=== PATIENT | male | born 1995 | race Caucasian/White ===

== ENCOUNTER → 2018-10-13 16:13 | Outpatient (CLI) | payer OTHER, SELFPAY ==
[2018-10-13 17:31] LABS: Absolute Lymphocyte Count 2.39 X10^3/ul (0.83-4.51); Absolute Neutrophil Count 2.5 X10^3/uL (2.0-7.7); Basophil# 0.04 X10^3/uL; Basophil% 0.7 % (0-1); Eosinophil# 0.25 X10^3/uL; Eosinophils% 4.4 % (0-5); Hematocrit 45.3 % (40-54); Hemoglobin 15.4 g/dl (13.0-16.5); Lymphocyte # 2.39 X10^3/ul (4.0); Lymphocyte % 42.2 % (19-41); Mean Corpuscular Hgb 28.9 pg (27.0-32.0); Mean Platelet Vol. 9.5 fl (6.2-12.0); Monocyte# 0.43 X10^3/uL; Monocyte% 7.6 % (0-10); Neutrophil # 2.54 X10^3/uL (2.7-7.7); Neutrophil % 44.9 % (47-70); Platelet Count 293 K/mm3 (150-450); RBC Distribution Width SD 37.1 fl (35.1-43.9); Red Blood Count 5.33 M/mm3 (4.6-6.2); White Blood Count 5.7 K/mm3 (4.4-11.0)
[2018-10-13 17:39] LABS: Vitamin D,25 Hydroxy 17.9 ng/mL (29.95-100.01)
[2018-10-13 17:47] LABS: POSITIVE COUNT NO; POSITIVE DIFFERENTIAL NO; POSITIVE MORPHOLOGY NO
[2018-10-13 17:50] LABS: ALB/GLOB Ratio 1.2 RATIO (0.9-2.4); AST(SGOT) 16 U/L (15-37); Alanine Aminotransfer ALT/SGPT 39 U/L (16-61); Albumin, Serum 3.9 g/dL (3.2-5.0); Alkaline Phosphatase 67 U/L (45-117); Anion Gap 9 (5-15); BUN 20 mg/dL (7-18); BUN/Creat Ratio 24.9 RATIO (10-20); Calcium,Total 9.2 mg/dL (8.5-10.1); Chloride 104 mmol/L (98-107); EST Glomerular Filtration Rate 125 mL/min (>60); Est Glom Filt Rate - Afr Amer 151 mL/min (>60); Globulin 3.2 g/dL (2.2-4.2); Glucose 85 mg/dL (74-106); Potassium 4.1 mmol/L (3.5-5.1); Protein, Total 7.1 g/dL (6.4-8.2); Sodium Level 138 mmol/L (136-145); Thyroid Stim Hormone (TSH) 0.84 uIU/mL (0.358-3.74)
--- OUTSIDE RECORDS SUMMARY | 2018-12-18 16:11 | XMS RPT_ITS ---
:1995 Author Organization OHIP Care Team Providers Name Role Phone Colin Adams Chi Attending Unavailable PROBLEMS PROBLEMS No Problem Records FoundPROCEDURES PROCEDURES No Procedure Records FoundRESULTS RESULTS VITAMIN D,25 HYDROXY Collected: 10/13/2018 Status: F Source: [place] 4:16 PM [facility] REPOSITORY TYPE CODE TESTS RESULT OUT OF REFERENCE UNITS RANGE LAB L506.1000 29.95-100.01 ng/mL Low Vitamin D 17.9 25-OH Result Comment: Vitamin D 25(OH) Status Range Deficiency <20 ng/mL (50nmol/L) Insuffciency 20 - 30 ng/mL (50 - 75 nmol/L) Sufficiency 30 - 100 ng/mL (75 - 250 nmol/L) Toxicity >100 ng/mL (>250 nmol/L) Performed By: #### L506.1000 #### [facility] [place], [address] CBC W/DIFF, AUTOMATED Collected: 10/13/2018 Status: F Source: [place] 4:16 PM [facility] REPOSITORY TYPE CODE TESTS RESULT OUT OF RANGE REFERENCE UNITS LAB L100.1000 4.4-11.0 K/mm3 Normal WBC 5.7 LAB L100.1200 4.6-6.2 M/mm3 Normal RBC 5.33 LAB L100.1300 13.0-16.5 g/dl Normal HGB 15.4 LAB L100.1400 40-54 % Normal HCT 45.3 LAB L100.1500 80-94 fL Normal MCV 85.0 LAB L100.1600 27.0-32.0 pg Normal MCH 28.9 LAB L100.1700 32-36 g/gl Normal MCHC 34.0 LAB L100.1810 11.6-14.6 % Normal RDW CV 12.0 LAB L100.1820 35.1-43.9 fl Normal RDW SD 37.1 LAB L100.1900 150-450 K/mm3 Normal PLT 293 LAB L100.2000 6.2-12.0 fl Normal MPV 9.5 LAB L100.2100 47-70 % Low NEUT% 44.9 LAB L100.2200 19-41 % High LY% 42.2 LAB L100.2300 0-10 % Normal MONO% 7.6 LAB L100.2400 0-5 % Normal EO% 4.4 LAB L100.2500 0-1 % Normal BASO% 0.7 LAB L100.2550 0.0-0.9 % Normal IM GRAN % 0.200 Result Comment: IG% - Immature Granulocytes (promyelocytes, myelocytes and metamyelocytes) > 1% indicates that a LEFT SHIFT is Present. LAB L100.2620 2.0-7.7 X10 3/uL Normal Absolute Neut 2.5 LAB L100.2720 0.83-4.51 X10 3/ul Normal Absolute Lymph 2.39 Performed By: #### L100.0100 #### [facility] [address] [place], [address] COMPREHENSIVE METABOLIC Collected: 10/13/2018 Status: F Source: [facility] 4:16 PM [facility] REPOSITORY TYPE CODE TESTS RESULT OUT OF RANGE REFERENCE UNITS LAB L501.0100 74-106 mg/dL Normal GLU 85 Result Comment: Please note revised GLUCOSE reference range effective 2017. LAB L501.1000 7-18 mg/dL High BUN 20 LAB L501.1100 0.70-1.30 mg/dL Normal CREAT,SERUM 0.80 Result Comment: The validity of the calculated GFR AND GFRAA in patients over 70 years has not been determined. Clinical correlation is essential. LAB L501.1110 >60 mL/min Normal EST GFR 125 Result Comment: Non- GFR Calc LAB L501.1115 >60 mL/min Normal EST GFR - AA 151 Result Comment: GFR Calc LAB L501.1300 10-20 RATIO High BUN/CRE 24.9 LAB L501.1500 6.4-8.2 g/dL T Normal PROT 7.1 LAB L501.1800 3.2-5.0 g/dL Normal ALB 3.9 LAB L501.1950 2.2-4.2 g/dL Normal GLOB 3.2 LAB L501.2000 0.9-2.4 RATIO Normal A/G 1.2 LAB L501.2200 8.5-10.1 mg/dL CA Normal 9.2 LAB L501.4100 15-37 U/L Normal AST 16 LAB L501.4305 45-117 U/L Normal ALK P 67 LAB L501.4405 16-61 U/L Normal ALT 39 LAB L501.4600 0.20-1.00 mg/dL T Normal BILI 0.30 LAB L501.5300 136-145 mmol/L NA Normal 138 LAB L501.5600 3.5-5.1 mmol/L K Normal 4.1 LAB L501.5900 98-107 mmol/L CL Normal 104 LAB L501.6100 21.0-32.0 mmol/L Normal CO2 25.0 LAB L501.6200 5-15 Normal GAP 9 Performed By: #### L500.4050, L501.9520 #### [facility] [address] [place], [address] THYROID STIM HORMONE Collected: 10/13/2018 Status: F Source: [place] (TSH) 4:16 PM [facility] REPOSITORY TYPE CODE TESTS RESULT OUT OF RANGE REFERENCE UNITS LAB L501.9520 0.358-3.74 uIU/mL Normal TSH 0.84 Performed By: #### L500.4050, L501.9520 #### [facility] [address] [place], [place], [address] GC/CHLAMYDIA AMPLIF Collected: 06/05/2018 Status: F Source: [place] 3:30 PM [facility] REPOSITORY TYPE CODE TESTS RESULT OUT OF REFERENCE UNITS RANGE LAB GCCTSR GC/Chlam Amp Urine Source LAB GCAMPL GC Negative Amplification for Neisseria gonorrhoeae by amplification. LAB CLAMPL Chlamydia Negative Amplif for Chlamydia trachomatis by amplification. Performed By: #### GCCT #### [facility] [address] [place] [id number] PROGRESS Observed: 06/05/2018 Status: COMPLETED Source: [place] 2:51 PM [facility] REPOSITORY HNO ID: [id number] Author: Ivan Lawrence Service: (none) Author Type: Physician Type: Progress Notes Filed: 06/05/2018 3:08 PM Note Text: Patient presents with: std check HPI: STD check. No current symptoms. Dysuria: no Frequency: No Hematuria: No Discharge: NO Lesions: no vesicles, blisters, rash, or papules Nausea: no Fever or chills: No Back pain: No Abdominal pain: No C/o erectile dysfunction Prior STI: No Had 1 encounter with a female 1 month ago who has since tested positive for chlamydia, she is saying he gave it to her. He has had 4 partners in the last year. He uses condoms most of the time. PAST MEDICAL HISTORY Diagnosis Date - Obesity MEDICATIONS: Current Outpatient Prescriptions: naltrexone-bupropion (CONTRAVE) 8-90 mg TbER Take 1 tablet by mouth once daily. PCP: Dr. Adams No current facility-administered medications for this visit. ALLERGIES: ALLERGIES No Known Allergies VITALS: BP 124/84 Pulse 111 Temp 36.6 ?C (97.8 ?F) (Left Tympanic) Resp 16 Wt 128.7 kg (283 lb 12.8 oz) SpO2 99% PHYSICAL EXAM: GEN: NAD, wearing sunglasses, somewhat nervous. HEENT: EOMI, conjunctiva clear, moist mucous membranes HEART: regular rate and rhythm, no murmurs LUNGS: clear to auscultation, no wheezes or crackles, no increased WOB ABDOMEN: Soft, nondistended, no masses, no suprapubic tenderness BACK: No CVA tenderness ASSESSMENT/PLAN: 1. Exposure to chlamydia - ICD9: V01.6, ICD10: Z20.2 - GC/CHLAMYDIA DNA DET Treat chlamydia - AZITHROMYCIN 500 MG TABLET Advised consistent condom use. - HIV 1,2 COMBO (AG/AB) - SYPHILIS IGG WITH CONF Erectile dysfunction may be from emotional stress, but cannot be fully addressed at this visit. Ivan Lawrence MD CNOV Observed: 06/05/2018 Status: COMPLETED Source: [place] 1:45 PM [facility] REPOSITORY Office Visit (UCWSTR) YAAKOV TAVERA ([id number]) 1995 M Date Time Provider Department 06/05/18 1:45 PM IVAN LAWRENCE [facility] During your visit today, we recorded the following information about you: Temperature Pulse Respiration Blood pressure 97.8 degrees 111/minute 16/minute 124/84 Weight 128.7 kg Ivan Lawrence MD 06/05/2018 3:08 PM Signed Patient presents with: std check HPI: STD check. No current symptoms. Dysuria: no Frequency: No Hematuria: No Discharge: NO Lesions: no vesicles, blisters, rash, or papules Nausea: no Fever or chills: No Back pain: No Abdominal pain: No C/o erectile dysfunction Prior STI: No Had 1 encounter with a female 1 month ago who has since tested positive for chlamydia, she is saying he gave it to her. He has had 4 partners in the last year. He uses condoms most of the time. PAST MEDICAL HISTORY Diagnosis Date - Obesity MEDICATIONS: Current Outpatient Prescriptions: naltrexone-bupropion (CONTRAVE) 8-90 mg TbER Take 1 tablet by mouth once daily. PCP: Dr. Adams No current facility-administered medications for this visit. ALLERGIES: ALLERGIES No Known Allergies VITALS: BP 124/84 Pulse 111 Temp 36.6 ?C (97.8 ?F) (Left Tympanic) Resp 16 Wt 128.7 kg (283 lb 12.8 oz) SpO2 99% PHYSICAL EXAM: GEN: NAD, wearing sunglasses, somewhat nervous. HEENT: EOMI, conjunctiva clear, moist mucous membranes HEART: regular rate and rhythm, no murmurs LUNGS: clear to auscultation, no wheezes or crackles, no increased WOB ABDOMEN: Soft, nondistended, no masses, no suprapubic tenderness BACK: No CVA tenderness ASSESSMENT/PLAN: 1. Exposure to chlamydia - ICD9: V01.6, ICD10: Z20.2 - GC/CHLAMYDIA DNA DET Treat chlamydia - AZITHROMYCIN 500 MG TABLET Advised consistent condom use. - HIV 1,2 COMBO (AG/AB) - SYPHILIS IGG WITH CONF Erectile dysfunction may be from emotional stress, but cannot be fully addressed at this visit. Ivan Lawrence MD Referring Provider: SELF [200] Allergies As of Date: 06/05/2018 (No Known Allergies) Date Reviewed: 06/05/2018 Reviewed by: Jody Wyatt Ma - Fully Assessed Reason for Visit: std check [Other] Reason For Visit History Recorded Primary Visit Diagnosis:Exposure to chlamydia [Z20.2] Order(s):GC/CHLAMYDIA DNA DET [SQGCCAMP] Order #: [id number] azithromycin (ZITHROMAX) 500 mg tabletTake 2 tablets by mouth one time only for 1 dose.Disp: 2 tabletRfl: 0 HIV 1,2 COMBO (AG/AB) [SQHIV12] Order #: [id number] FUTURE SYPHILIS IGG WITH CONF [SQSYPHGX] Order #: [id number] FUTURE Prescriptions as of 06/05/2018 Sig: NALTREXONE 8 MG-BUPROPION 90 * Take 1 tablet by mouth once d* AZITHROMYCIN 500 MG TABLET Take 2 tablets by mouth one t* Problem List As Of Date: 06/05/2018 (None) Prescriptions ordered this encounter Disp Refills Start End AZITHROMYCIN 500 MG TABLET 2 ta* 0 06/05/2018 06/05/2018 Route: ORAL Sig: Take 2 tablets by mouth one time only for 1 dose. Encounter Status:Closed by IVAN LAWRENCE MD on 06/05/18 ALLERGIES ALLERGIES DATE TYPE / CODE NAME / CODE REACTION SEVERITY SOURCE 04/20/2016 Drug No Known Unknown [facility] Allergy/416 Allergies/V07950 [facility] [id number](SNOM 0388(RXNORM) Repository ED CT) Drug NO KNOWN [facility] Class/12961 ALLERGIES [facility] [place] 1003(SNOMED Repository CT) ENCOUNTERS ENCOUNTERS ADMIT/DISCHARGE ACCOUNT ADMITTING ENCOUNTER LOCATION SOURCE NUMBER CLASS 10/13/2018 [id number] [facility] ing:POLAB3 Repository 06/05/2018/06/09/20 [id number] Ambulatory [address] Repository PAYERS PAYERS ENCOUNTER GUARANTOR PAYER SUBSCRIBER SOURCE 10/13/2018 Yaakov Fernando [place] Insurance:AULTCAREPol YODERDOB: Community [facility] Number: [id number] [address]Evc: [phone] [id number] Repository [phone] () Date:[id number] [address]VO: 10/13/2018 Secondary NOT GIVENUNK [place] Insurance:SELF PAY [facility] Number: Effective Repository Date:2018-10-13
== END ==
PROVIDERS: Visit Provider Family Medicine Geriatric Medicine
DX: E55.9 Vitamin D deficiency, unspecified (principal); I10 Essential (primary) hypertension
CPT/HCPCS: 36415; 80053; 82306; 84443; 85025

== ENCOUNTER → 2019-01-13 15:39 | Outpatient (CLI) | payer OTHER, SELFPAY ==
[2017-03-04 21:41] VITALS: BMI 34.4
--- NOTE | 2019-01-13 15:43 | RAD_ITS ---
STUDY: X-RAY - SKULL REASON FOR EXAM: Male, 23 years old. Foreign body in the lower lip TECHNIQUE: 3 view(s) of the skull were obtained. COMPARISON: None. FINDINGS: There is a punctate (2 mm) radiopaque foreign body of the lower lip seen best on the lateral view but appears to be just right of midline on frontal view. Normal osseous calvarium. Normal visualized facial bones. Normal visualized paranasal sinuses. RAD/Skull less than 4 Views IMPRESSION: 1. Punctate (2 mm) right paramedial lower lip foreign body. Electronically Signed: Michael Romo MD at 16:05 EDT , Service support ,
== END ==
PROVIDERS: Referring Provider Otolaryngology; Visit Provider Otolaryngology
DX: S00.551A Superficial foreign body of lip, initial encounter (principal)
CPT/HCPCS: 70250

== ENCOUNTER → 2019-10-17 16:41 | Outpatient (CLI) | payer OTHER, SELFPAY ==
[2017-03-04 21:41] VITALS: BMI 34.4
[2019-10-17 17:08] LABS: Absolute Lymphocyte Count 2.91 X10^3/uL (0.83-4.51); Absolute Neutrophil Count 3.8 X10^3/uL (2.0-7.7); Basophil# 0.04 X10^3/uL; Basophil% 0.5 % (0-1); Eosinophils% 1.4 % (0-5); Hematocrit 45.1 % (40-54); Hemoglobin 15.1 g/dL (13.0-16.5); Lymphocyte # 2.91 X10^3/ul (4.0); Lymphocyte % 39.8 % (19-41); Mean Corp Hgb Conc 33.5 g/dL (32-36); Mean Corpuscular Volume 83.7 fL (80-94); Mean Platelet Vol. 9.1 fl (6.2-12.0); Monocyte# 0.47 X10^3/uL; Monocyte% 6.4 % (0-10); NRBC Flagged by Analyzer 0 % (0-5); Neutrophil # 3.78 X10^3/uL (2.7-7.7); Neutrophil % 51.8 % (47-70); Platelet Count 308 K/mm3 (150-450); RBC Distribution Width CV 11.5 % (11.6-14.6); RBC Distribution Width SD 34.6 fl (35.1-43.9); Red Blood Count 5.39 M/mm3 (4.6-6.2); White Blood Count 7.3 K/mm3 (4.4-11.0)
[2019-10-17 17:44] LABS: ALB/GLOB Ratio 1.1 RATIO (0.9-2.4); AST(SGOT) 18 U/L (15-37); Alanine Aminotransfer ALT/SGPT 40 U/L (16-61); Albumin, Serum 3.9 g/dL (3.2-5.0); Alkaline Phosphatase 89 U/L (45-117); Anion Gap 6 (5-15); BUN 15 mg/dL (7-18); BUN/Creat Ratio 17.5 RATIO (10-20); Calcium,Total 8.9 mg/dL (8.5-10.1); Chloride 106 mmol/L (98-107); Creatinine, Serum 0.86 mg/dL (0.70-1.30); EST Glomerular Filtration Rate 115 mL/min (>60); Est Glom Filt Rate - Afr Amer 139 mL/min (>60); Globulin 3.6 g/dL (2.2-4.2); Glucose 107 mg/dL (74-106); Potassium 3.8 mmol/L (3.5-5.1); Protein, Total 7.5 g/dL (6.4-8.2); Sodium Level 138 mmol/L (136-145); Thyroid Stim Hormone (TSH) 0.78 uIU/mL (0.358-3.74)
== END ==
PROVIDERS: Visit Provider Family Medicine Geriatric Medicine
DX: I10 Essential (primary) hypertension (principal)
CPT/HCPCS: 36415; 80053; 84443; 85025

== ENCOUNTER → 2022-06-19 | Outpatient (CLI) | payer OTHER, SELFPAY ==
[2022-06-19 16:29] LABS: Absolute Lymphocyte Count 2.85 X10^3/uL (0.83-4.51); Absolute Neutrophil Count 5.3 X10^3/uL (2.0-7.7); Basophil# 0.06 X10^3/uL; Basophil% 0.7 % (0-1); Eosinophil# 0.24 X10^3/uL; Eosinophils% 2.7 % (0-5); Hematocrit 46.3 % (40-54); Hemoglobin 15.6 g/dL (13.0-16.5); Lymphocyte # 2.85 X10^3/ul (0.83-4.51); Lymphocyte % 31.7 % (19-41); Mean Corp Hgb Conc 33.7 g/dL (32-36); Mean Corpuscular Hgb 28.1 pg (27.0-32.0); Mean Corpuscular Volume 83.3 fL (80-94); Mean Platelet Vol. 9.7 fl (6.2-12.0); Monocyte# 0.46 X10^3/uL; Monocyte% 5.1 % (0-10); NRBC Flagged by Analyzer 0 % (0-5); Neutrophil # 5.34 X10^3/uL (2.7-7.7); Neutrophil % 59.5 % (47-70); Platelet Count 298 K/mm3 (150-450); RBC Distribution Width CV 11.9 % (11.6-14.6); RBC Distribution Width SD 36.1 fl (35.1-43.9); Red Blood Count 5.56 M/mm3 (4.6-6.2)
[2022-06-19 16:50] LABS: ALB/GLOB Ratio 1.1 RATIO (0.9-2.4); AST(SGOT) 16 U/L (15-37); Alanine Aminotransfer ALT/SGPT 40 U/L (16-61); Albumin, Serum 3.7 g/dL (3.2-5.0); Alkaline Phosphatase 69 U/L (45-117); Anion Gap 10 (5-15); BUN 18 mg/dL (7-18); Calcium,Total 8.7 mg/dL (8.5-10.1); Chloride 104 mmol/L (98-107); EST Glomerular Filtration Rate 94 mL/min (>60); Est Glom Filt Rate - Afr Amer 114 mL/min (>60); Globulin 3.5 g/dL (2.2-4.2); Glucose 128 mg/dL (74-106); Potassium 3.6 mmol/L (3.5-5.1); Protein, Total 7.2 g/dL (6.4-8.2); Sodium Level 138 mmol/L (136-145); Thyroid Stim Hormone (TSH) 1.99 uIU/mL (0.358-3.74)
== END | disposition home or self-care (01) ==
LOC: POLAB3 12:51
PROVIDERS: PCP Family Medicine Geriatric Medicine; Visit Provider Family Medicine Geriatric Medicine
DX: I10 Essential (primary) hypertension (principal)
CPT/HCPCS: 36415; 80053; 84443; 85025

== ENCOUNTER → 2023-03-18 | Outpatient (CLI) | payer OTHER, SELFPAY ==
[2023-03-18 16:06] LABS: Absolute Lymphocyte Count 2.47 X10^3/uL (0.83-4.51); Absolute Neutrophil Count 3.9 X10^3/uL (2.0-7.7); Basophil# 0.03 X10^3/uL; Basophil% 0.4 % (0-1); Eosinophil# 0.18 X10^3/uL; Eosinophils% 2.5 % (0-5); Hematocrit 47.6 % (40-54); Hemoglobin 15.6 g/dL (13.0-16.5); Lymphocyte # 2.47 X10^3/ul (0.83-4.51); Lymphocyte % 34.4 % (19-41); Mean Corp Hgb Conc 32.8 g/dL (32-36); Mean Corpuscular Volume 85.5 fL (80-94); Mean Platelet Vol. 9.4 fl (6.2-12.0); Monocyte# 0.54 X10^3/uL; Monocyte% 7.5 % (0-10); NRBC Flagged by Analyzer 0 % (0-5); Neutrophil # 3.92 X10^3/uL (2.7-7.7); Neutrophil % 54.8 % (47-70); Platelet Count 292 K/mm3 (150-450); RBC Distribution Width CV 12.1 % (11.6-14.6); RBC Distribution Width SD 37.4 fl (35.1-43.9); Red Blood Count 5.57 M/mm3 (4.6-6.2); White Blood Count 7.2 K/mm3 (4.4-11.0)
[2023-03-18 16:36] LABS: ALB/GLOB Ratio 1.1 RATIO (0.9-2.4); AST(SGOT) 18 U/L (15-37); Alanine Aminotransfer ALT/SGPT 32 U/L (16-61); Albumin, Serum 3.7 g/dL (3.2-5.0); Alkaline Phosphatase 56 U/L (45-117); Anion Gap 4 (5-15); BUN 19 mg/dL (7-18); BUN/Creat Ratio 21.7 RATIO (10-20); Calcium,Total 9.3 mg/dL (8.5-10.1); Chloride 105 mmol/L (98-107); Creatinine, Serum 0.88 mg/dL (0.70-1.30); EST Glomerular Filtration Rate 110 mL/min (>60); Est Glom Filt Rate - Afr Amer 133 mL/min (>60); Globulin 3.5 g/dL (2.2-4.2); Glucose 94 mg/dL (74-106); Protein, Total 7.2 g/dL (6.4-8.2); Sodium Level 137 mmol/L (136-145); Thyroid Stim Hormone (TSH) 1.18 uIU/mL (0.358-3.74)
== END | disposition home or self-care (01) ==
PROVIDERS: PCP Family Medicine Geriatric Medicine; Referring Provider Family Medicine Geriatric Medicine; Visit Provider Family Medicine Geriatric Medicine
DX: R53.83 Other fatigue (principal)
CPT/HCPCS: 36415; 80053; 84443; 85025

== ENCOUNTER → 2023-07-01 | Outpatient (CLI) | payer OTHER, SELFPAY ==
[2023-07-01 15:22] LABS: Absolute Lymphocyte Count 1.83 X10^3/uL (0.83-4.51); Absolute Neutrophil Count 2.6 X10^3/uL (2.0-7.7); Basophil# 0.04 X10^3/uL; Basophil% 0.8 % (0-1); Eosinophil# 0.21 X10^3/uL; Hematocrit 46.9 % (40-54); Lymphocyte # 1.83 X10^3/ul (0.83-4.51); Lymphocyte % 35.2 % (19-41); Mean Corp Hgb Conc 34.1 g/dL (32-36); Mean Corpuscular Hgb 29.1 pg (27.0-32.0); Mean Corpuscular Volume 85.4 fL (80-94); Mean Platelet Vol. 9.6 fl (6.2-12.0); Monocyte# 0.46 X10^3/uL; Monocyte% 8.8 % (0-10); NRBC Flagged by Analyzer 0 % (0-5); Neutrophil # 2.64 X10^3/uL (2.7-7.7); Neutrophil % 50.8 % (47-70); Platelet Count 292 K/mm3 (150-450); RBC Distribution Width CV 12.5 % (11.6-14.6); RBC Distribution Width SD 38.7 fl (35.1-43.9); Red Blood Count 5.49 M/mm3 (4.6-6.2); White Blood Count 5.2 K/mm3 (4.4-11.0)
[2023-07-01 16:00] LABS: ALB/GLOB Ratio 1.1 RATIO (0.9-2.4); AST(SGOT) 10 U/L (15-37); Alanine Aminotransfer ALT/SGPT 28 U/L (16-61); Albumin, Serum 3.8 g/dL (3.2-5.0); Alkaline Phosphatase 59 U/L (45-117); Anion Gap 6 (5-15); BUN 20 mg/dL (7-18); BUN/Creat Ratio 22.7 RATIO (10-20); Calcium,Total 8.8 mg/dL (8.5-10.1); Chloride 108 mmol/L (98-107); Creatinine, Serum 0.88 mg/dL (0.70-1.30); EST Glomerular Filtration Rate 108 mL/min (>60); Est Glom Filt Rate - Afr Amer 131 mL/min (>60); Globulin 3.4 g/dL (2.2-4.2); Glucose 130 mg/dL (74-106); Potassium 3.8 mmol/L (3.5-5.1); Protein, Total 7.2 g/dL (6.4-8.2); Sodium Level 138 mmol/L (136-145); Thyroid Stim Hormone (TSH) 1.25 uIU/mL (0.358-3.74)
== END | disposition home or self-care (01) ==
LOC: POLAB3 14:30
PROVIDERS: PCP Family Medicine Geriatric Medicine; Visit Provider Family Medicine Geriatric Medicine
DX: R53.83 Other fatigue (principal)
CPT/HCPCS: 36415; 80053; 84443; 85025

== ENCOUNTER → 2024-07-06 | Outpatient (CLI) | payer OTHER, SELFPAY ==
[2024-07-06 13:28] LABS: Absolute Neutrophil Count 4.2 X10^3/uL (2.0-7.7); Basophil# 0.05 X10^3/uL; Basophil% 0.7 % (0-1); Eosinophil# 0.19 X10^3/uL; Eosinophils% 2.6 % (0-5); Hematocrit 47.4 % (40-54); Hemoglobin 16.2 g/dL (13.0-16.5); Lymphocyte % 31.9 % (19-41); Mean Corp Hgb Conc 34.2 g/dL (32-36); Mean Corpuscular Hgb 28.5 pg (27.0-32.0); Mean Corpuscular Volume 83.5 fL (80-94); Mean Platelet Vol. 9.3 fl (6.2-12.0); Monocyte# 0.45 X10^3/uL; Monocyte% 6.3 % (0-10); NRBC Flagged by Analyzer 0 % (0-5); Neutrophil # 4.19 X10^3/uL (2.7-7.7); Neutrophil % 58.2 % (47-70); Platelet Count 274 K/mm3 (150-450); RBC Distribution Width CV 12.1 % (11.6-14.6); RBC Distribution Width SD 36.6 fl (35.1-43.9); Red Blood Count 5.68 M/mm3 (4.6-6.2); White Blood Count 7.2 K/mm3 (4.4-11.0)
[2024-07-06 14:15] LABS: ALB/GLOB Ratio 1.2 RATIO (0.9-2.4); AST(SGOT) 13 U/L (15-37); Alanine Aminotransfer ALT/SGPT 28 U/L (16-61); Albumin, Serum 3.8 g/dL (3.2-5.0); Alkaline Phosphatase 61 U/L (45-117); Anion Gap 5 (5-15); BUN 15 mg/dL (7-18); BUN/Creat Ratio 17.2 RATIO (10-20); Calcium,Total 9.1 mg/dL (8.5-10.1); Chloride 108 mmol/L (98-107); Cholesterol 109 mg/dL (200); Creatinine, Serum 0.87 mg/dL (0.70-1.30); EST Glomerular Filtration Rate 109 mL/min (>60); Est Glom Filt Rate - Afr Amer 132 mL/min (>60); Globulin 3.3 g/dL (2.2-4.2); Glucose 94 mg/dL (74-106); High Density Lipoprotein 43 mg/dL; Potassium 4.1 mmol/L (3.5-5.1); Protein, Total 7.1 g/dL (6.4-8.2); Sodium Level 140 mmol/L (136-145); Triglycerides 79 mg/dL; Very Low Density Lipoprotein 16 mg/dL (5-40)
== END | disposition home or self-care (01) ==
LOC: POLAB3 13:08
PROVIDERS: PCP Family Medicine Geriatric Medicine; Visit Provider Family Medicine Geriatric Medicine
DX: E78.5 Hyperlipidemia, unspecified (principal); R53.83 Other fatigue
CPT/HCPCS: 36415; 80053; 80061; 84443; 85025

== ENCOUNTER 2024-11-03 10:00 | Day surgery (SDC) | payer OTHER, SELFPAY ==
[2024-11-03] VITALS (14 sets, daily range): BP systolic 113–169; BP diastolic 60–147; PULSE 71–102; RESP 16–20; TEMP 36.3–36.8; O2SAT 95–100; BMI 45.4
[2024-11-03] MEDS: 0.9% Normal Saline (1000mL) 1,000 ML 15 ML IV (10:35)
--- NOTE | 2024-11-03 10:59 | PRE.ANES_ITS ---
ASA Classification* ASA Classification ASA Classification: 3 Assessment & Plan Anesthesia* Anesthesia Assessment Anesthesia Assessment: Discussed sedation and/or anesthesia options, risks, benefits, and alternatives with patient/parents/legal guardian/POA. Questions invited. The patient/parents/legal guardian/POA seems to understand and agrees to proceed with anesthesia plan. Reviewed the physical assessment, medical history, allergy history and patient home medications list prior to surgery/procedure/anesthetic and documented any changes. Performed airway and anesthesia risk assessments. Anesthesia Type Anesthesia Type: General History Source History Obtained from:: Patient and Chart Anesthesia Focused Assessment* Temperature: 97.8 F Pulse Rate: 91 Blood Pressure: 130/79 Respiratory Rate: 16 Pulse Ox: 98 Oxygen Delivery Method: Room Air Airway Assessment Mouth opens: >3 cm Mallampati Score: III Teeth Condition: Caps/Crowns (Patient has a #9. It Is Tight.) and Missing (Patient has a couple missing teeth on the left lower. Rest of the teeth are tight.) Neck Range of motion (ROM): Full ROM Comment: Full parks Focused Labs Anesthesia Preop lab: CBC WBC 7.2 K/mm3 (4.4-11.0) 07/06/24 13:15 07/06/24 RBC 5.68 M/mm3 (4.6-6.2) 07/06/24 13:15 07/06/24 Hgb 16.2 g/dL (13.0-16.5) 07/06/24 13:15 07/06/24 Hct 47.4 % (40-54) 07/06/24 13:15 07/06/24 Plt Count 274 K/mm3 (150-450) 07/06/24 13:15 07/06/24 CHEMISTRY Potassium 4.1 mmol/L (3.5-5.1) 07/06/24 13:15 07/06/24 Sodium 140 mmol/L (136-145) 07/06/24 13:15 07/06/24 BUN 15 mg/dL (7-18) 07/06/24 13:15 07/06/24 Creatinine 0.87 mg/dL (0.70-1.30) 07/06/24 13:15 07/06/24 Glucose 94 mg/dL (74-106) 07/06/24 13:15 07/06/24 TSH 1.450 uIU/mL (0.358-3.740) 07/06/24 13:15 10/06/21 COAG Pre-Assessment Diagnosis/Proposed Procedure Planned Operative Procedure(s): robotic assisted ventral hernia repair with mesh Anesthesia History Anesthesia History - electronic technologist: Anesthesia History - electronic technologist Hx Hospitalization No 10/24/24 13:28 Any Problems With Anesthesia No 10/24/24 13:28 Cholinesterase deficiency No 10/24/24 13:28 You/Your Family Experience No 10/24/24 13:28 fever (hyperthermia) with Relationship Recent Exposure to Contagious No 11/03/24 10:21 Disease Does patient have nerve No 10/24/24 13:28 stimulator Patient instructed to have device shut off --Does patient have Pacemaker No 11/03/24 10:21 or ICD? When Was Last Pacemaker Check QUESTION #4 FULL TEXT: You/Your Family Experience fever (hyperthermia) with Anesthesia Last Oral Intake Last Oral intake: Last Oral Intake NPO since 04:00 11/03/24 10:21 Meds taken in AM with sips of water? Meds patient instructed to take am of surgery Any additional information?: Yes NPO since: 04:00 (Patient had water at 4 AM.) PONV PONV - electronic technologist: PONV - electronic technologist Female No 10/24/24 13:28 HX of Motion Sickness Yes 10/24/24 13:28 HX of N/V After Surgery No 10/24/24 13:28 Non-Smoker Yes 10/24/24 13:28 Duration of Surgery greater Yes 10/24/24 13:28 than 60 minutes Number of Risk Factors 3 10/24/24 13:28 PONV Score Moderate Risk 10/24/24 13:28 Height & Weight Height & Weight: Anesthesia: Height & Weight Height 5 ft 8 in 11/03/24 10:21 Weight: 135.624 kg 11/03/24 10:21 Body Mass Index (BMI) 45.4 11/03/24 10:21 Respiratory Assessment Respiratory Assessment - electronic technologist: Respiratory Tract Infection Hx - electronic technologist Hx Respiratory Tract Infection No 10/24/24 13:28 Any additional information?: Yes Hx Respiratory Tract Infection: Yes (Patient had a cold a week ago. Still has some nasal congestion.) STOP Sleep Apnea STOP Sleep Apnea - electronic technologist: STOP Sleep Apnea - electronic technologist Hx Hypertension No 10/24/24 13:28 Hx Sleep Apnea No 10/24/24 13:28 CPAP BIPAP Do you snore loudly (louder Yes 10/24/24 13:28 than talking or can be heard Do you often feel tired/ Yes 10/24/24 13:28 fatigued/ sleepy during daytime? Has anyone observed you stop No 10/24/24 13:28 breathing during sleep? STOP Results Positive 10/24/24 13:28 QUESTION #5 FULL TEXT : Do you snore loudly (louder than talking or can be heard through closed doors)? 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 Specify any problems Hx of Preganancy in last 3 N/A 10/24/24 13:28 Months Nurse Filling Out Transfusion DSCHRIBER 10/24/24 13:28 & Questions: Date: 10/24/24 10/24/24 13:28 Time: 13:30 10/24/24 13:28 Patient unable to answer at this time (ie. confused, unrespo /Reproduction History /Reproductive History - electronic technologist: /Reproductive Hx- electronic technologist Hx Now No 10/24/24 13:28 Gestational Age (in weeks): EDC: Hx Hx Para Hx Section SAB No 10/24/24 13:28 Active Medications Active Medications: Current Medications Generic Name Dose Route Start Last Admin Trade Name Freq PRN Reason Stop Dose Admin Cefazolin Sodium 3 gm/ N/A 30 mls @ 600 mls/hr 11/03/24 11:25 IV 11/03/24 11:27 PREOP ONE Sodium Chloride 1,000 mls @ 15 mls/hr 11/03/24 10:10 11/03/24 10:35 IV 11/08/24 23:29 15 mls/hr .Q48H KELLEN Administration Protocol [facility] Medical History Wears glasses Alcohol use Migraine headache Heartburn Non-smoker Home Medications ?Medication ?Instructions ?Recorded ?Last Taken ?Type No Known/Unobtainable [No Known 7 Unknown History Home Medications] Allergy/AdvReac Type Severity Reaction Status Date / Time No Known Allergies Allergy Verified 11/03/24 10:19 Family History Sister Diabetes Aunt Breast cancer Surgical History Hx of hand surgery Social History Smoking Status: Never smoker alcohol intake: current alcohol intake frequency: a few times a week Review of Systems (Anesthesia) ROS Narrative System reviewed and no additional complaints, except as documented.
--- NOTE | 2024-11-03 11:09 | HP.PCM_ITS ---
HPI - General General Date of Admission: 11/03/24 Date of Service: 11/03/24 Chief Complaint: ventral hernia HPI Narrative The patient is a 29-year-old male with umbilical/periumbilical hernias. He states he has had this probably 8 or 9 months and this seems to be causing him some increasing discomfort. He had a CT scan performed through the [facility] that showed 2 hernias. The more superior hernia was about 2 cm fascial defect in about a 4 cm hernia sac. He had a smaller umbilical fat-containing hernia with a fascial defect size measuring about 1.2 cm and hernia sac measuring about 1.6 cm. He presents today for robotic hernia repair surgery [facility] Medical History Wears glasses Alcohol use Migraine headache Heartburn Non-smoker Home Medications ?Medication ?Instructions ?Recorded ?Last Taken ?Type No Known/Unobtainable [No Known 7 Unknown History Home Medications] Allergy/AdvReac Type Severity Reaction Status Date / Time No Known Allergies Allergy Verified 11/03/24 10:19 Family History Sister Diabetes Aunt Breast cancer Surgical History Hx of hand surgery Social History Smoking Status: Never smoker alcohol intake: current alcohol intake frequency: a few times a week Vital Signs Vital Signs Vital Signs: 11/03/24 10:21 11/03/24 11:06 Temperature 97.8 F 97.8 F Temperature Source Temporal Pulse Rate 91 91 Respiratory Rate 16 16 Blood Pressure 130/79 H 130/79 H Blood Pressure Mean 96 Blood Pressure Source Monitor Blood Pressure Position Semi-Fowlers Blood Pressure Location Left Arm Pulse Ox 98 98 Oxygen Delivery Method Room Air Room Air Weight Weight: 299 lb Body Mass Index (BMI) 45.4 Physical Exam Const alert, oriented x3 and no apparent distress HEENT normocephalic GI normal to inspection, nondistended, normoactive bowel sounds Assessment & Plan Assessment/Plan (1) Ventral hernia: PLAN: Plan robotic ventral hernia repair with mesh today Charges/Coding Visit Charges Inpatient E&M: 63301 Init Hosp L1
[2024-11-03] MEDS: Cefazolin 3 GM in Syringe 1 EACH IV (11:53)
[2024-11-03] MEDS: Gentamicin 80 MG/2 ML Vial (12:39)
[2024-11-03] MEDS: Bupiv/Epi 0.25% 30 ML Vial (14:56)
--- NOTE | 2024-11-03 15:24 | PCM.POST.ANE ---
Anesthesia: Postop Eval I Current Vital Signs Temperature: 97.4 F Pulse Rate: 89 Blood Pressure: 158/77 Respiratory Rate: 20 Pulse Ox: 99 Assessment Airway patent: Yes Spontaneous unlabored respirations: Yes nausea: No Vomiting: No Anesthesia Complication: No Fluid Hydration Crystalloid volume administer (ml): 1,800 Total IV fluid infused: 1,800 Progress Note Anesthesia document: Postop Eval 1 completed: Yes
--- NOTE | 2024-11-03 15:25 | DCINST_ITS ---
Discharge Instructions Diet Discharge Diet: Light diet - advance as tolerated Activity Discharge Activity: Return to Normal Activity and May Shower May shower in (days): 1 Ice area for (Minutes): 30 Lifting Restrictions: No lifting over 20 pounds for about 6 weeks Dressing / Incision Call your doctor if your incision/area has: Continuous Slow Oozing, Sudden Increased Bleeding, Increased Pain/ Swelling, Increased Redness, Foul Smelling Discharge and Swelling at the incision site Call your doctor if you observe: Fever of 101 or Higher Remove Dressing in: 2 days Cleanse incision/area with: Soap & Water Additional Dressing/Incision Instructions:: Okay to remove dressing prior to first shower Follow Up Care Please Follow Up With: Filippo Reza MD Test Results: Test results from this visit will be discussed in further detail at your follow- up appointment, if applicable. Discharge Plan Admission Primary Reason for Your Visit: Ventral hernia repair Attending Provider: Filippo Reza Primary Care Provider: Colin Adams Chi Instructions Print Language: Zambian Discharge Orders/Prescriptions Prescriptions: New oxycodone-acetaminophen [Percocet] 5-325 mg tablet 1 tab PO Q8H PRN (Reason: pain) 3 Days Qty: 14 0RF Referrals / Follow Up: Colin Adams Chi, MD [Primary Care Provider] - Disposition Disposition (needs filled in before D/C Order can be placed): Home, Self Care
--- NOTE | 2024-11-03 15:54 | POSTOPAN2_ITS ---
Anesthesia Postop Eval I Sum Postop Eval Completion status Anesthesia document: Postop Eval 1 completed: Yes Anesthesia Postop Eval I Summary Anesthesia Postop Eval I Summary: Anesthesia Postop Eval I: Assessment Summary Airway patent Yes 11/03/24 15:27 [email or web address] [email or web address] Spontaneous unlabored Yes 11/03/24 15:27 EMBEDDED [email or web address] respirations Mental status nausea No 11/03/24 15:27 EMBEDDED [email or web address] Vomiting No 11/03/24 15:27 EMBEDDED [email or web address] Anesthesia Postop Eval I: Fluid Summary Crystalloid volume administer 1,800 11/03/24 15:27 EMBEDDED [email or web address] (ml) Colloids volume administered ( ml) Blood Product volume administered (ml) Total IV fluid infused 1,800 11/03/24 15:27 EMBEDDED [email or web address] Anesthesia Postop Eval I: Summary Notes Anesthesia Complication No 11/03/24 15:27 [email or web address] [email or web address] Anesthesia Complication Comment: Post-operative progress note Anesthesia: Postop Eval II Evaluation Mental status: Awake and Calm Pain Level: 1 nausea: No Vomiting: No Complications Anesthesia Complication: No
--- NOTE | 2024-11-03 15:54 | PCM.POSTANE2 ---
Anesthesia Postop Eval I Sum Postop Eval Completion status Anesthesia document: Postop Eval 1 completed: Yes Anesthesia Postop Eval I Summary Anesthesia Postop Eval I Summary: Anesthesia Postop Eval I: Assessment Summary Airway patent Yes 11/03/24 15:27 EXPERIMENTAL PREFLIGHT MECHANIC.[email or web address] Spontaneous unlabored Yes 11/03/24 15:27 EXPERIMENTAL PREFLIGHT MECHANIC.LMIL respirations Mental status nausea No 11/03/24 15:27 EXPERIMENTAL PREFLIGHT MECHANIC.LMIL Vomiting No 11/03/24 15:27 EXPERIMENTAL PREFLIGHT MECHANIC.LMIL Anesthesia Postop Eval I: Fluid Summary Crystalloid volume administer 1,800 11/03/24 15:27 EXPERIMENTAL PREFLIGHT MECHANIC.LMIL (ml) Colloids volume administered ( ml) Blood Product volume administered (ml) Total IV fluid infused 1,800 11/03/24 15:27 EXPERIMENTAL PREFLIGHT MECHANIC.LMIL Anesthesia Postop Eval I: Summary Notes Anesthesia Complication No 11/03/24 15:27 EXPERIMENTAL PREFLIGHT MECHANIC.LMIL Anesthesia Complication Comment: Post-operative progress note Anesthesia: Postop Eval II Evaluation Mental status: Awake and Calm Pain Level: 1 nausea: No Vomiting: No Complications Anesthesia Complication: No
--- NOTE | 2024-11-03 16:02 | OP.PCM_ITS ---
Problems Associated Problem List Diagnoses (1) Ventral hernia: Procedures Digestive 40xxx-49xxx: 26127 RPR AA HRN 12-05 [facility] Operative Report (Standard) Operative Information Date of Procedure: 11/03/24 Pre-Operative Diagnosis: Ventral hernia Post-Operative Diagnosis: Same Surgery/Procedure Performed: Robotic assisted ventral hernia repair with mesh electrical development engineer: Yes Land Resource Specialist: Maria M Uriostegui Tasks completed by clinic office assistant: Closing, Retracting and Other Additional title i assistant?: No Type of Anesthesia: General and Local RN Documented Start/Stop Times: Operation Date: 11/03/24 11:25 Case Time Into Pre-Op 11/03/24 10:06 Anesthesia Start 11/03/24 11:53 Into Room 11/03/24 11:53 Procedure Start 11/03/24 12:25 Procedure End 11/03/24 14:59 Anesthesia End 11/03/24 15:11 Out of Room 11/03/24 15:11 Into Recovery 11/03/24 15:13 Procedure Start Time: 12:25 Procedure Stop Time: 14:59 Select all DRAINS/GRAFTS/IMPLANTS that apply: Implanted device Implanted device details: 15 x 10 cm ProGrip mesh Estimated Blood Loss: 15 cc Specimen collected: No Description of surgery: The patient is a 29-year-old male recently seen through the office with periumbilical pain. He was diagnosed with with umbilical/ventral hernia x 2. I offered him robotic repair with mesh. We discussed the details of the planned procedure and he wishes to proceed. Patient was brought to the operating room today following informed consent. Preoperative antibiotics were given and a timeout was performed. He was placed supine on the operative table with arms outstretched on arm boards and general anesthesia was induced. The abdomen is then prepped and draped in the usual sterile manner. The bed was slightly flexed and there was some roll to the right. A 5 mm incision was made at about the same level as the umbilicus on the left lateral side. A 5 mm trocar was placed optically. This was placed without incident. The abdomen is then fully insufflated with CO2 gas. There were no signs of bowel or vascular injury 1 the scope was inserted. An 8 mm trocar was placed in the left upper quadrant and another 8 mm trocar was placed under direct visualization in the left lower quadrant. Both were placed without incident. The original 5 mm trocar was switched to an 8 mm trocar. The da Umer robot was then wheeled into position and was docked. The hernia was visualized from the inside. The peritoneum flap was then created by incising in a superior to inferior direction using curved scissors. A set peritoneal plane was then developed and was carried from lateral to medial. At the midline the larger more superior hernia was encountered. This was reduced. Fascial defect size was about 1-1/2 to 2 cm. There was a more inferior fascial defect right upper the level of the umbilicus. This too was fat-containing and reduced. Both fascial defects were closed using strata fix suture. This closed the fascial defects nicely. Next a 15 x 10 cm mesh was selected. This was a ProGrip mesh. This was placed in antibiotic solution and was inserted. The mesh was unrolled and was oriented such that the longer aspect of the mesh was oriented in a craniocaudal direction. The mesh laid nicely. Once this was performed the peritoneum was then closed in a running manner using V-Loc suture. This closed the peritoneum nicely. There was a small hole in the hernia sac which was closed using 3-0 Vicryl placed in a [id number] manner. The remaining trocars were opened up and insufflation was allowed to escape. The trocars removed. Local anesthetic was injected into each of the incisions. The incisions were then closed with 4-0 Vicryl suture. Skin glue was applied as dressing. He was awakened by anesthesia. Abdominal binder was placed. He was taken to recovery in good condition. An RESISTOR TESTING MACHINE OPERATOR was utilized as a religious assistant. Her role included assistance with skin closure and instrument exchanges Surgical Findings: 2 fascial defects. The fascial defects measured about 1 and 1.5 cm each Complications Complications: No Admit VTE Documentation VTE Present on Admission: No VTE Mechan Device Prophylaxis: SCD's VTE Pharm Prophylaxis ordered?: No Reason prophylaxis not ordered: Treatment Not Indicated
[2024-11-03] MEDS: Acetaminophen 325 MG Tablet 650 MG PO (17:21)
[2024-11-03] MEDS: oxyCODONE 5 MG Tablet PO (17:22)
== END 2024-11-03 18:11 | disposition home or self-care (01) ==
LOC: SDC 10:01 → AC 10:05
PROVIDERS: PCP Family Medicine Geriatric Medicine; Referring Provider Surgery; Visit Provider Surgery
PROC: (CPT 49593; principal; 2024-11-03 11:05)
DX: K43.9 Ventral hernia without obstruction or gangrene (principal); K42.9 Umbilical hernia without obstruction or gangrene
CPT/HCPCS: 49593; S2900; 00752; J2405

== ENCOUNTER → 2024-11-23 | Outpatient (CLI) | payer OTHER, SELFPAY ==
--- NOTE | 2024-11-23 16:04 | RAD_ITS ---
PROCEDURE: PA and lateral chest radiographs, two views REASON FOR EXAM: Shortness of breath TECHNIQUE: PA and lateral chest radiographs were obtained. COMPARISON: None. FINDINGS: The cardiomediastinal silhouette is within normal limits. No pneumothorax, focal airspace consolidation, or pleural effusion. Osseous structures appear intact. RAD/Chest PA and Lateral IMPRESSION: No acute cardiopulmonary process is demonstrated. If there are persistent symp toms or clinical concern, short-term follow-up CT evaluation may be considered. Reading [facility]
[2024-11-23 16:23] LABS: Absolute Lymphocyte Count 2.85 X10^3/uL (0.83-4.51); Absolute Neutrophil Count 8.2 X10^3/uL (2.0-7.7); Basophil# 0.06 X10^3/uL; Basophil% 0.5 % (0-1); Eosinophil# 0.31 X10^3/uL; Eosinophils% 2.5 % (0-5); Hemoglobin 16.3 g/dL (13.0-16.5); Lymphocyte # 2.85 X10^3/ul (0.83-4.51); Lymphocyte % 23.4 % (19-41); Mean Corp Hgb Conc 33.3 g/dL (32-36); Mean Corpuscular Hgb 27.9 pg (27.0-32.0); Mean Corpuscular Volume 83.9 fL (80-94); Mean Platelet Vol. 8.8 fl (6.2-12.0); Monocyte# 0.77 X10^3/uL; Monocyte% 6.3 % (0-10); NRBC Flagged by Analyzer 0 % (0-5); Neutrophil # 8.16 X10^3/uL (2.7-7.7); Neutrophil % 66.9 % (47-70); Platelet Count 361 K/mm3 (150-450); RBC Distribution Width CV 11.9 % (11.6-14.6); RBC Distribution Width SD 35.8 fl (35.1-43.9); Red Blood Count 5.84 M/mm3 (4.6-6.2); White Blood Count 12.2 K/mm3 (4.4-11.0)
[2024-11-23 16:45] LABS: Anion Gap 10 (5-15); BUN 15 mg/dL (4-19); BUN/Creat Ratio 18.3 RATIO (10-20); Calcium 9.8 mg/dL (7.6-11.0); Carbon Dioxide 26.5 mmol/L (22.0-29.0); Chloride 100 mmol/L (96-108); Creatinine, Serum 0.8 mg/dL (0.8-1.3); EST Glomerular Filtration Rate 121 (>60); Glucose 117 mg/dL (70-99); Potassium 4.6 mmol/L (3.3-5.1); Sodium Level 136 mmol/L (133-145)
[2024-11-23 16:51] LABS: D-Dimer Quantitative (DVT/PE) < 0.27 FEU/ug/m (0.27-0.49)
== END | disposition home or self-care (01) ==
PROVIDERS: PCP Family Medicine Geriatric Medicine; Referring Provider Family Medicine Geriatric Medicine; Visit Provider Family Medicine Geriatric Medicine
DX: R06.02 Shortness of breath (principal); R68.83 Chills (without fever)
CPT/HCPCS: 36415; 71046; 80048; 85025; 85379; 87631

== ENCOUNTER → 2025-04-04 | Outpatient (CLI) | payer OTHER, SELFPAY | END | disposition home or self-care (01) | LOC: POLAB3 16:32 | PROVIDERS: PCP Family Medicine Geriatric Medicine; Visit Provider Family Medicine Geriatric Medicine | DX: R68.83 Chills (without fever) (principal) | CPT/HCPCS: 87631 ==

== ENCOUNTER → 2025-07-17 | Outpatient (CLI) | payer OTHER, SELFPAY ==
[2025-07-17 13:20] LABS: Hematocrit 47.3 % (40-54); Hemoglobin 16.4 g/dL (13.0-16.5); Immature Granulocytes Count 0.020 X10^3/uL (0.0-0.0); Mean Corp Hgb Conc 34.7 g/dL (32-36); Mean Corpuscular Volume 84.0 fL (80-94); Mean Platelet Vol. 9.5 fl (6.2-12.0); NRBC Flagged by Analyzer 0 % (0-5); Platelet Count 304 K/mm3 (150-450); RBC Distribution Width CV 11.9 % (11.6-14.6); RBC Distribution Width SD 36.4 fl (35.1-43.9); Red Blood Count 5.63 M/mm3 (4.6-6.2); White Blood Count 6.7 K/mm3 (4.4-11.0)
--- OUTSIDE RECORDS SUMMARY | 2025-07-17 13:26 | XMS RPT_ITS | CCD ---
Author Organization [facility] Care Team Providers Care Global Category Manager Name Role Phone Mj Melly Chi Primary Care Provider [phone] MJ, MELLY CHI Referring Unavailable MJ, MELLY CHI Primary Care Unavailable MJ, MELLY CHI Referring Unavailable MJ, MELLY CHI Primary Care Unavailable Mj OCAMPO, Dr. Melly Neff Primary Care Provider Mj OCAMPO, Dr. Melly Neff Referring Provider Libia OCAMPO, Dr. Filippo Woodard Attending Provider Libia OCAMPO, Dr. Filippo Woodard Referring Provider Libia OCAMPO, Dr. Filippo Woodard Other Provider Mj OCAMPO, Dr. Melly Neff Attending Provider Mj OCAMPO, Dr. Melly Neff Primary Care Provider Mj OCAMPO, Dr. Melly Neff Attending Provider Mj, Melly Chi Primary Care Unavailable WanFilippo tate Attending Unavailable WanFilippo tate Referring Unavailable Mj, Melly Chi Attending Unavailable Mj, Melly Chi Primary Care Unavailable Mj, Melly Chi Referring Unavailable Mj, Melly Chi Primary Care Unavailable Mj, Melly Chi Attending Unavailable Mj, Melly Chi Primary Care Unavailable Mj, Melly Chi Attending Unavailable Mj, Melly Chi Referring Unavailable Mj, Melly Chi Primary Care Unavailable WanekFilippo Attending Unavailable Mj, Melly Chi Referring Unavailable Mj, Melly Chi Primary Care Unavailable WanekFilippo Attending Unavailable Mj, Melly Chi Primary Care Unavailable WanekFilippo Consulting Unavailable Filippo Reza Attending Unavailable Filippo Reza Referring Unavailable Medications Current Medications Medication Drug Class(es) Dates Sig (Normalized) Sig (Original) 12 hr buPROPion hydrochloride 90 mg / naltrexone hydrochloride 8 mg extended release oral tablet (2 sources) Opioid Antagonist, Aminoketone take 1 tablet by mouth once daily naltrexone-bupropi on (CONTRAVE) 8-90 mg TbER Take 1 tablet by mouth once daily. PCP: Dr. Adams Active Completed/Discontinued Medications Medication Drug Class(es) Dates Sig (Normalized) Sig (Original) acetaminophen 325 mg / oxyCODONE hydrochloride 5 mg oral tablet (2 sources) Opioid Agonist Start: 11-03-2024 End: 11-16-2024 Oxycodone-Acetamino phen (Percocet) 5-325 mg tablet Discontinued 1 {tbl} PO Q8H as needed for pain 14 3 0 November 03, 2024 November 16, 2024 3:41pm Ventral hernia Ventral hernia without obstruction or gangrene Problems Active Problems Problem Classification Problem Date Documented Da te Episodic/Chronic Abdominal pain (2 sources) Abdominal pain; Translations: [Unspecified abdominal pain] 09-05-2024 Episodic Disorders of lipid metabolism (1 source) Hyperlipidemia, unspecified; Translations: [Hyperlipidemia, unspecified] Onset: 07-26-2024 Chronic Open wounds of head; neck; and trunk (3 sources) Laceration - injury; Translations: [Laceration] 03-05-2017 Episodic Residual codes; unclassified (1 source) Chills (without fever); Translations: [Chills (without fever)] Onset: 04-11-2025 Episodic Past or Other Problems Problem Classification Problem Date Documented Da te Episodic/Chronic Abdominal hernia (7 sources) Hernia of anterior abdominal wall; Translations: [Ventral hernia without obstruction or gangrene] Onset: 11-25-2024 09-05-2024 Episodic Other lower respiratory disease (1 source) Shortness of breath; Translations: [Shortness of breath] Onset: 12-07-2024 Episodic Results Test Name Value Interpretation Reference Range Facility Influenza virus A and B and SARS-CoV-2 (COVID-19) and Respiratory syncytial virus RNAOrdered By: Melly Adams on 04-04-2025 SARS-CoV-2 (COVID-19) RNA HERNAN+probe Ql (Unsp spec) [facility] M100.678on 04-04-2025 M100.678 Pending SARS-CoV-2 (COVID 19) Negative INFLUENZA A Negative INFLUENZA B Negative RSV PCR Negative Normal [facility] Comment on above: Performed By: #### M 100.678 #### [facility] [address] [place], [address] Absolute neutrophil countOrd ered By: Melly Adams on 11-23-2024 Neutrophils (Bld) [#/Vol] 8.2 10*3/uL High 2.0-7.7 [facility] BUN/creatinine ratioOrdered By: Melly Aadms on 11-23-2024 Urea nitrogen/Creatinine [Mass ratio] 18.3 mg/mg 10-20 [facility] Basic Metabolic Profile (BMP )on 11-23-2024 Anion gap [Moles/Vol] 10 mmol/L Normal 5-15 [facility] Comment on above: Performed By: #### L 300.8000, L500.2500, M100.678, L100.0100 #### [facility] [address] [place], [address] BUN/CRE 18.3 RATIO Normal 10- [facility] Comment on above: Performed By: #### L 300.8000, L500.2500, M100.678, L100.0100 #### [facility] [address] [place], [address] Calcium [Mass/Vol] 9.8 mg/dL Normal 7.6-11.0 [facility] Comment on above: Performed By: #### L 300.8000, L500.2500, M100.678, L100.0100 #### [facility] [address], [address] Chloride [Moles/Vol] 100 mmol/L Normal 96-108 [facility] Comment on above: Performed By: #### L 300.8000, L500.2500, M100.678, L100.0100 #### [facility] [address] [place], [address] CO2 [Moles/Vol] 26.5 mmol/L Normal 22.0-29.0 [facility] Comment on above: Performed By: #### L 300.8000, L500.2500, M100.678, L100.0100 #### [facility] [address] [place], [address] Creatinine [Mass/Vol] 0.8 mg/dL Normal 0.8-1.3 [facility] Comment on above: Performed By: #### L 300.8000, L500.2500, M100.678, L100.0100 #### [facility] [address] [place], [address] GFR/1.73 sq M.predicted among non-blacks MDRD (S/P/Bld) [Vol rate/Area] 121 mL/min/{1.73_m2} Normal >60 [facility] Comment on above: Result Comment: mL/m in/1.73m2 CKD-EPI Creatinine Equation (2020) Performed By: #### L 300.8000, L500.2500, M100.678, L100.0100 #### [facility] [address] [place], [address] Glucose [Mass/Vol] 117 mg/dL High 70-99 [facility] Comment on above: Performed By: #### L 300.8000, L500.2500, M100.678, L100.0100 #### [facility] [address] [place], [address] Potassium [Moles/Vol] 4.6 mmol/L Normal 3.3-5.1 [facility] Comment on above: Performed By: #### L 300.8000, L500.2500, M100.678, L100.0100 #### [facility] [address] [place], [address] Sodium [Moles/Vol] 136 mmol/L Normal 133-145 [facility] Comment on above: Performed By: #### L 300.8000, L500.2500, M100.678, L100.0100 #### [facility] [address] [place], [address] Urea nitrogen [Mass/Vol] 15 mg/dL Normal 4-19 [facility] Comment on above: Performed By: #### L 300.8000, L500.2500, M100.678, L100.0100 #### [facility] [address] [place], [address] Basophil percentageOrdered B y: Melly Adams on 11-23-2024 Basophils/100 WBC (Bld) 0.5 % 0-1 [facility] CBC W/Diff, Automatedon 10-30 Absolute Lymph 2.85 X10 3/uL Normal 0.83-4.51 [facility] Comment on above: Performed By: #### L 300.8000, L500.2500, M100.678, L100.0100 #### [facility] [address] [place], [address] Absolute Neut 8.2 X10 3/uL High 2.0-7.7 [facility] Comment on above: Performed By: #### L 300.8000, L500.2500, M100.678, L100.0100 #### [facility] [address] [place], [address] Basophils/100 WBC (Bld) 0.5 % Normal 0-1 [facility] Comment on above: Performed By: #### L 300.8000, L500.2500, M100.678, L100.0100 #### [facility] [address] [place], [address] Eosinophils/100 WBC (Bld) 2.5 % Normal 0-5 [facility] Comment on above: Performed By: #### L 300.8000, L500.2500, M100.678, L100.0100 #### [facility] [address] [place], [address] Erythrocyte distribution width (RBC) [Ratio] 11.9 % Normal 11.6-14.6 [facility] Comment on above: Performed By: #### L 300.8000, L500.2500, M100.678, L100.0100 #### [facility] [address] [place], [address] Hematocrit (Bld) [Volume fraction] 49.0 % Normal 40-54 [facility] Comment on above: Performed By: #### L 300.8000, L500.2500, M100.678, L100.0100 #### [facility] [address] [place], [address] Hemoglobin (Bld) [Mass/Vol] 16.3 g/dL Normal 13.0-16.5 [facility] Comment on above: Performed By: #### L 300.8000, L500.2500, M100.678, L100.0100 #### [facility] [address] [place], [address] IG% 0.400 Normal 0.0-0.9 [facility] Comment on above: Result Comment: IG% - Immature Granulocytes (promyelocytes, myelocytes and metamyelocytes) > 1% indicates that a LEFT SHIFT is Present. Performed By: #### L 300.8000, L500.2500, M100.678, L100.0100 #### [facility] [address] [place], [address] Lymphocytes/100 WBC (Bld) 23.4 % Normal 19-41 [facility] Comment on above: Performed By: #### L 300.8000, L500.2500, M100.678, L100.0100 #### [facility] [address] [place], [address] MCH (RBC) [Entitic mass] 27.9 pg Normal 27.0-32.0 [facility] Comment on above: Performed By: #### L 300.8000, L500.2500, M100.678, L100.0100 #### [facility] [address] [place], [address] MCHC (RBC) [Mass/Vol] 33.3 g/dL Normal 32-36 [facility] Comment on above: Performed By: #### L 300.8000, L500.2500, M100.678, L100.0100 #### [facility] [address] [place], [address] MCV (RBC) [Entitic vol] 83.9 fL Normal 80-94 [facility] Comment on above: Performed By: #### L 300.8000, L500.2500, M100.678, L100.0100 #### [facility] [address] [place], [address] Monocytes/100 WBC (Bld) 6.3 % Normal 0-10 [facility] Comment on above: Performed By: #### L 300.8000, L500.2500, M100.678, L100.0100 #### [facility] [address] [place], [address] Neutrophils/100 WBC (Bld) 66.9 % Normal 47-70 [facility] Comment on above: Performed By: #### L 300.8000, L500.2500, M100.678, L100.0100 #### [facility] [address] [place], [address] Nucleated RBC (Bld) [#/Vol] 0 10*3/uL Normal 0-5 [facility] Comment on above: Performed By: #### L 300.8000, L500.2500, M100.678, L100.0100 #### [facility] [address] [place], [address] Platelet mean volume (Bld) [Entitic vol] 8.8 fL Normal 6.2-12.0 [facility] Comment on above: Performed By: #### L 300.8000, L500.2500, M100.678, L100.0100 #### [facility] [address], [address] Platelets (Bld) [#/Vol] 361 10*3/uL Normal 150-450 [facility] Comment on above: Performed By: #### L 300.8000, L500.2500, M100.678, L100.0100 #### [facility] [address] [place], [address] RBC (Bld) [#/Vol] 5.84 10*6/uL Normal 4.6-6.2 [facility] Comment on above: Performed By: #### L 300.8000, L500.2500, M100.678, L100.0100 #### [facility] [address] [place], [address] RDW SD 35.8 fl Normal 35.1-43.9 [facility] Comment on above: Performed By: #### L 300.8000, L500.2500, M100.678, L100.0100 #### [facility] [address] [place], [address] WBC (Bld) [#/Vol] 12.2 10*3/uL High 4.4-11.0 [facility] Comment on above: Performed By: #### L 300.8000, L500.2500, M100.678, L100.0100 #### [facility] [address] [place], [address] Carbon dioxide measurementOr dered By: Melly Adams on 11-23-2024 CO2 [Moles/Vol] 26.5 mmol/L 22.0-29.0 [facility] Chest PA and Lateralon 11-23 Chest PA and Lateral [facility] Imaging Services [address] [place], [place] [address] Chest PA and Lateral MR#: [id number] Acct: [id number] Name: MJ TAVERA Rep #: [id number] : 1995 M 29 From: Julio C Treviño i DO PCP: Dr. Melly Adams MD Status: REG CLI Study: Chest PA and Lateral Date of Exam: 11/23/24 Exam# [id number] Ordering Dr: Melly Adams MD PROCEDURE: PA and lateral chest radiographs, two views REASON FOR EXAM: Shortness of breath TECHNIQUE: PA and lateral chest radiographs were obtained. COMPARISON: None. FINDINGS: The cardiomediastinal silhouette is within normal limits. No pneumothorax, focal airspace consolidation, or pleural effusion. Osseous structures appear intact. RAD/Chest PA and Lateral IMPRESSION: No acute cardiopulmonary process is demonstrated. If there are persistent symptoms or clinical concern, short-term follow-up CT evaluation may be considered. Reading Location: [facility] CC: Dr. Melly Adams MD Wrapper Opener: Signed Normal [facility] Chloride measurementOrdered By: Melly Adams on 11-23-2024 Chloride [Moles/Vol] 100 mmol/L 96-108 [facility] Creatinine [Moles/Vol]Ordere d By: Melly Adams on 11-23-2024 Creatinine [Mass/Vol] 0.8 mg/dL 0.8-1.3 [facility] D-Dimer Quantitative (DVT/PE )on 11-23-2024 D-DIMER QUANT < 0.27 Low 0.27-0.49 [facility] Comment on above: Result Comment: NORM AL D-Dimer level (<0.50) indicates no DVT or PE. Performed By: #### L 300.8000, L500.2500, M100.678, L100.0100 #### [facility] [address] [place], [address] D-dimer measurement for deep venous thrombosisOrdered By: Melly Adams on 11-23-2024 D-Dimer Quantitative (PE/DVT) < 0.27 FEU/ug/m Low 0.27-0.49 [facility] Comment on above: NORMAL D-Dimer level (<0.50) indicates no DVT or PE. Eosinophil percentageOrdered By: Melly Adams on 11-23-2024 Eosinophils/100 WBC (Bld) 2.5 % 0-5 [facility] Erythrocyte distribution wid th ratioOrdered By: Melly Adams 11-23-2024 Erythrocyte distribution width (RBC) [Ratio] 11.9 % 11.6-14.6 [facility] Erythrocyte distribution wid th standard deviationOrdered By: Melly Adams 11-23-2024 Erythrocyte distribution width (RBC) [Entitic vol] 35.8 fL 35.1-43.9 [facility] GFR/1.73 sq M.predicted becca g non-blacks MDRD (S/P/Bld) [Vol rate/Area]Ordered By: Melly Adams 11-23-2024 Estimated GFR (MDRD) Non-Af Amer 121 >60 [facility] Comment on above: mL/min/1.73m2 CKD-EP I Creatinine Equation (2020) Hematocrit Auto (Bld) [Volum e fraction]Ordered By: Melly Adams 11-23-2024 Hematocrit (Bld) [Volume fraction] 49.0 % 40-54 [facility] Hemoglobin measurementOrdere d By: Melly Adams 11-23-2024 Hemoglobin (Bld) [Mass/Vol] 16.3 g/dL 13.0-16.5 [facility] Immature granulocytes/100 WB C Auto (Bld)Ordered By: Melly Adams 11-23-2024 Immature granulocytes/100 WBC (Bld) 0.400 % 0.0-0.9 [facility] Comment on above: IG% - Immature Granu locytes (promyelocytes, myelocytes and metamyelocytes) > 1% indicates that a LEFT SHIFT is Present. Influenza virus A and B and SARS-CoV-2 (COVID-19) and Respiratory syncytial virus RNAOrdered By: Melly Adams on 11-23-2024 SARS-CoV-2 (COVID-19) RNA HERNAN+probe Ql (Unsp spec) Influenzae A Abnormal [facility] Lymphocytes Auto (Unsp spec) [#/Vol]Ordered By: Melly Adams on 11-23-2024 Lymphocytes (Bld) [#/Vol] 2.85 10*3/uL 0.83-4.51 [facility] Lymphocytes/100 WBC Auto (Un sp spec)Ordered By: Melly Adams on 11-23-2024 Lymphocytes/100 WBC (Bld) 23.4 % 19-41 [facility] M100.678on 11-23-2024 SARS-CoV-2 (COVID-19) Ab IA Ql Normal Reference Range = Negative FLUABV+SARS-CoV-2+RSV Pnl Resp HERNAN+probe GeneXpert Instrument, PCR method Copy of report sent to Infection Control Printer [id number] 11/23/24 2694 VSICK. SARS-CoV-2 (COVID 19) Negative INFLUENZA A A Positive A INFLUENZA B Negative RSV PCR Negative INFLUENZAE A Normal [facility] Comment on above: Performed By: #### L 300.8000, L500.2500, M100.678, L100.0100 #### [facility] [address] [place], [address] MCV (mean corpuscular volume ) determinationOrdered By: Melly Adams on 11-23-2024 MCV (RBC) [Entitic vol] 83.9 fL 80-94 [facility] Mean corpuscular hemoglobin (MCH) determinationOrdered By: Melly Adams 11-23-2024 MCH (RBC) [Entitic mass] 27.9 pg 27.0-32.0 [facility] Mean corpuscular hemoglobin concentration (MCHC) determinationOrdered By: Melly Adams on 11-23-2024 MCHC (RBC) [Mass/Vol] 33.3 g/dL 32-36 [facility] Mean platelet volume determi nationOrdered By: Melly Adams on 11-23-2024 Platelet mean volume (Bld) [Entitic vol] 8.8 fL 6.2-12.0 [facility] Monocyte percentageOrdered B y: Melly Adams on 11-23-2024 Monocytes/100 WBC (Bld) 6.3 % 0-10 [facility] Neutrophil percentageOrdered By: Melly Adams on 11-23-2024 Neutrophils/100 WBC (Bld) 66.9 % 47-70 [facility] Nucleated red blood cell per centageOrdered By: Melly Adams on 11-23-2024 Nucleated RBC/100 WBC (Bld) [Ratio] 0 % 0-5 [facility] Platelet countOrdered By: Nghia Adams on 11-23-2024 Platelets (Bld) [#/Vol] 361 10*3/uL 150-450 [facility] RBC Auto (Bld) [#/Vol]Ordere d By: Melly Adams on 11-23-2024 RBC (Bld) [#/Vol] 5.84 10*6/uL 4.6-6.2 [facility] Serum glucose measurement (m ass/volume)Ordered By: Melly Adams on 11-23-2024 Glucose [Mass/Vol] 117 mg/dL High 70-99 [facility] Serum or plasma anion gap de termination (moles/volume)Ordered By: Melly Adams on 11-23-2024 Anion gap [Moles/Vol] 10 mmol/L 5-15 [facility] Serum or plasma calcium vani urement (mass/volume)Ordered By: Melly Adams on 11-23-2024 Calcium [Mass/Vol] 9.8 mg/dL 7.6-11.0 [facility] Serum or plasma potassium me asurementOrdered By: Melly Adams on 11-23-2024 Potassium [Moles/Vol] 4.6 mmol/L 3.3-5.1 [facility] Serum or plasma sodium measu rement (moles/volume)Ordered By: Mlely Adams on 11-23-2024 Sodium [Moles/Vol] 136 mmol/L 133-145 [facility] Serum or plasma urea nitroge n measurement (mass/volume)Ordered By: Melly Adams on 11-23-2024 Urea nitrogen [Mass/Vol] 15 mg/dL -19 [facility] White blood cell (WBC) count Ordered By: Melly Aadms on 11-23-2024 WBC (Bld) [#/Vol] 12.2 10*3/uL High 4.4-11.0 [facility] Surgery Visit Reporton 11-16 Surgery Visit Report [facility] [address] [place] [address] OFFICE VISIT Date of Service: 11/16/24 MR#: [id number] Acct: [id number] Name: MJ TAVERA Rep #: [id number] : 1995 Provider: Dr. Filippo tate MD Age/Sex: 29/M Location: [facility] Status: Signed Intake Vital Signs 11/03/24 10:21 Height 5 ft 8 in Intake Visit Reasons: VENTRAL HERNIA DOS 2/ Chief Complaint: ventral hernia Is patient in pain?: No Allergies No Known Allergies Allergy (Verified 11/16/24 14:41) Subjective Details: The patient is a 29-year-old male who returns today for postoperative visit after recent robotic umbilical/ventral hernia repair with mesh. He states he is doing well. He has really had no significant issues or problems during the recovery phase other than developing flu which slowed his recovery. He did state that he also noticed a small lump in the right scrotum that he feels is new since surgery. Objective Details: He is alert and oriented x 3. He is in no acute distress. His incisions are well-healed. No signs of erythema or infection. Previous hernia site looks great. There is no evidence of hernia recurrence or persistence. No significant seroma. Examination of the right scrotum does reveal about a 1-1/2 cm subcutaneous nodule. This may just be fluid. I recommend that he keep an eye on this for the next month. If this is still present in a month he should probably get an ultrasound. Coding Level of Care Code Global Post Op Diagnoses Ventral hernia K43.9 [facility] Medical History Wears glasses Alcohol use Migraine headache Heartburn Non-smoker Surgical History Hx of hand surgery Family History Sister Diabetes Aunt Breast cancer Social History Smoking Status: Never smoker alcohol intake: current alcohol intake frequency: a few times a week Assessment and Plan (No Qualifiers) Assessment and Plan (1) Ventral hernia: Status: Acute Plan: Patient is a 29-year-old male status post a successful robotic ventral hernia repair with mesh. He is doing well postoperatively. His only concern is a nodule in the right scrotum that he states is new since surgery. I reassured him that this may just be postoperative fluid that may have migrated to this area secondary to gravity. I did encourage him to monitor this finding. If it is still present in about 4 weeks, he should contact my office at which time I would recommend getting an ultrasound. He is agreeable this plan. He will contact me in a few weeks if it persists. Otherwise follow-up will be as needed. 11/16/24 1454 Date Filippo Reza MD [facility] Signature: Date (if applicable) CC: Dr. Melly Adams MD [facility] Discharge Instructionon Discharge Instruction [facility] Medical Records Department [address] [place] [address] Instructions for Home/Discharge Instructions 11/03/24 1525 MR#: [id number] Acct: [id number] Name: MJ TAVERA Rep #: [id number] : 1995 29 From: Filippo Reza MD PCP: Dr. Melly Adams MD Status:REG [facility] Discharge Instructions Diet Discharge Diet: Light diet - advance as tolerated Activity Discharge Activity: Return to Normal Activity and May Shower May shower in (days): 1 Ice area for (Minutes): 30 Lifting Restrictions: No lifting over 20 pounds for about 6 weeks Dressing / Incision Call your doctor if your incision/area has: Continuous Slow Oozing, Sudden Increased Bleeding, Increased Pain/ Swelling, Increased Redness, Foul Smelling Discharge and Swelling at the incision site Call your doctor if you observe: Fever of 101 or Higher Remove Dressing in: 2 days Cleanse incision/area with: Soap Water Additional Dressing/Incision Instructions:: Okay to remove dressing prior to first shower Follow Up Care Please Follow Up With: Filippo Reza MD Test Results: Test results from this visit will be discussed in further detail at your follow-up appointment, if applicable. Discharge Plan Admission Primary Reason for Your Visit: Ventral hernia repair Attending Provider: Filippo Reza Primary Care Provider: Melly Adams Chi Instructions Print Language: Occitan Discharge Orders/Prescriptions Prescriptions: New oxycodone-acetaminoph en [Percocet] 5-325 mg tablet 1 tab PO Q8H PRN (Reason: pain) 3 Days Qty: 14 0RF Referrals / Follow Up: Melly Adams Chi, MD [Primary Care Provider] - Disposition Disposition (needs filled in before D/C Order can be placed): Home, Self Care 11/03/24 1530 Filippo Reza MD CC: Dr. Melly Adams MD Signed [facility] MR/POSTOP.[facility] 11-03-2024 MR/POSTOP.[facility] Medical Records Department [address] [place] [address] Anesthesia Postop Eval I 11/03/24 1524 MR#: [id number] Acct: [id number] Name: MJ TAVERA Rep #: [id number] : 1995 29 From: Karla Araya CRNA PCP: Dr. Melly Adams MD Status:REG SD Y Race: C Location: [place] [address] Anesthesia: Postop Eval I Current Vital Signs Temperature: 97.4 F Pulse Rate: 89 Blood Pressure: 158/77 Respiratory Rate: 20 Pulse Ox: 99 Assessment Airway patent: Yes Spontaneous unlabored respirations: Yes nausea: No Vomiting: No Anesthesia Complication: No Fluid Hydration Crystalloid volume administer (ml): 1,800 Total IV fluid infused: 1,800 Progress Note Anesthesia document: Postop Eval 1 completed: Yes 11/03/24 1528 Date Karla Araya DIRECTOR STAFFING Cosigner Signature: Date CC: Signed Normal [facility] MR/[id number] 11-03-2024 MR/POSTOPAN2 [facility] Medical Records Department [address] [place] [address] Anesthesia Postop Eval II 11/03/24 1554 MR#: [id number] Acct: [id number] Name: MJ TAVERA Rep #: [id number] : 1995 29 From: Eduin Patterson MD PCP: Dr. Melyl Adams MD Status:REG SDC Y Race: C Location: [place] [address] Anesthesia Postop Eval I Sum Postop Eval Completion status Anesthesia document: Postop Eval 1 completed: Yes Anesthesia Postop Eval I Summary Anesthesia Postop Eval I Summary: Anesthesia Postop Eval I: Assessment Summary Airway patent Yes 11/03/24 15:27 [email or web address] Spontaneous unlabored Yes 11/03/24 15:27 [email or web address] respirations Mental status nausea No 11/03/24 15:27 [email or web address] Vomiting No 11/03/24 15:27 [email or web address] Anesthesia Postop Eval I: Fluid Summary Crystalloid volume administer 1,800 11/03/24 15:27 [email or web address] (ml) Colloids volume administered ( ml) Blood Product volume administered (ml) Total IV fluid infused 1,800 11/03/24 15:27 [email or web address] Anesthesia Postop Eval I: Summary Notes Anesthesia Complication No 11/03/24 15:27 [email or web address] Anesthesia Complication Comment: Post-operative progress note Anesthesia: Postop Eval II Evaluation Mental status: Awake and Calm Pain Level: 1 nausea: No Vomiting: No Complications Anesthesia Complication: No 11/03/24 1555 Date Eduin Patterson MD Cosigner Signature: Date CC: Signed Normal [facility] Operative Reporton 5 Operative Report [facility] Medical Records Department [address] [place] [address] Operative Report 11/03/24 1602 MR#: [id number] Acct: [id number] Name: MJ TAVERA Rep #: [id number] : 1995 29 From: Filippo Reza MD PCP: Dr. Melly Adams MD Status:[facility] Location: [place] [address] Problems Associated Problem List Diagnoses (1) Ventral hernia: Procedures Digestive 40xxx-49xxx: 11957 RPR AA HRN 12-05 [facility] Operative Report (Standard) Operative Information Date of Procedure: 11/03/24 Pre-Operative Diagnosis: Ventral hernia Post-Operative Diagnosis: Same Surgery/Procedure Performed: Robotic assisted ventral hernia repair with mesh distribution center administrator: Yes Front End Technician: Maria M Uriostegui Tasks completed by assistant professor of psychology: Closing, Retracting and Other Additional assistant art director?: No Type of Anesthesia: General and Local RN Documented Start/Stop Times: Operation Date: 11/03/24 11:25 Case Time Into Pre-Op 11/03/24 10:06 Anesthesia Start 11/03/24 11:53 Into Room 11/03/24 11:53 Procedure Start 11/03/24 12:25 Procedure End 11/03/24 14:59 Anesthesia End 11/03/24 15:11 Out of Room 11/03/24 15:11 Into Recovery 11/03/24 15:13 Procedure Start Time: 12:25 Procedure Stop Time: 14:59 Select all DRAINS/GRAFTS/IMPLANT S that apply: Implanted device Implanted device details: 15 x 10 cm ProGrip mesh Estimated Blood Loss: 15 cc Specimen collected: No Description of surgery: The patient is a 29-year-old male recently seen through the office with periumbilical pain. He was diagnosed with with umbilical/ventral hernia x 2. I offered him robotic repair with mesh. We discussed the details of the planned procedure and he wishes to proceed. Patient was brought to the operating room today following informed consent. Preoperative antibiotics were given and a timeout was performed. He was placed supine on the operative table with arms outstretched on arm boards and general anesthesia was induced. The abdomen is then prepped and draped in the usual sterile manner. The bed was slightly flexed and there was some roll to the right. A 5 mm incision was made at about the same level as the umbilicus on the left lateral side. A 5 mm trocar was placed optically. This was placed without incident. The abdomen is then fully insufflated with CO2 gas. There were no signs of bowel or vascular injury 1 the scope was inserted. An 8 mm trocar was placed in the left upper quadrant and another 8 mm trocar was placed under direct visualization in the left lower quadrant. Both were placed without incident. The original 5 mm trocar was switched to an 8 mm trocar. The [employer] robot was then wheeled into position and was docked. The hernia was visualized from the inside. The peritoneum flap was then created by incising in a superior to inferior direction using curved scissors. A set peritoneal plane was then developed and was carried from lateral to medial. At the midline the larger more superior hernia was encountered. This was reduced. Fascial defect size was about 1-1/2 to 2 cm. There was a more inferior fascial defect right upper the level of the umbilicus. This too was fat- containing and reduced. Both fascial defects were closed using strata fix suture. This closed the fascial defects nicely. Next a 15 x 10 cm mesh was selected. This was a ProGrip mesh. This was placed in antibiotic solution and was inserted. The mesh was unrolled and was oriented such that the longer aspect of the mesh was oriented in a craniocaudal direction. The mesh laid nicely. Once this was performed the peritoneum was then closed in a running manner using V-Loc suture. This closed the peritoneum nicely. There was a small hole in the hernia sac which was closed using 3-0 Vicryl placed in a feiroh-au-cysgb manner. The remaining trocars were opened up and insufflation was allowed to escape. The trocars removed. Local anesthetic was injected into each of the incisions. The incisions were then closed with 4-0 Vicryl suture. Skin glue was applied as dressing. He was awakened by anesthesia. Abdominal binder was placed. He was taken to recovery in good condition. An [employer]CH[employer] was utilized as a project construction assistant manager. Her role included assistance with skin closure and instrument exchanges Surgical Findings: 2 fascial defects. The fascial defects measured about 1 and 1.5 cm each Complications Complications: No Admit VTE Documentation VTE Present on Admission: No VTE Mechan Device Prophylaxis: SCD's VTE Pharm Prophylaxis ordered?: No Reason prophylaxis not ordered: Treatment Not Indicated 11/03/24 1616 Cosigner Signature (if applicable): CC: Dr. Filippo Reza MD; Dr. Melly Adams MD Signed Normal [facility] Surgery Visit Reporton 09-05 Surgery Visit Report [facility] [address] [place] [address] OFFICE VISIT Date of Service: 09/05/24 MR#: [id number] Acct: [id number] Name: MJ TAVERA Rep #: [id number] : 1995 Provider: Dr. Filippo tate MD Age/Sex: 29/M Location: [facility] Status: Signed Intake Vital Signs 09/05/24 14:37 Height 5 ft 8 in Weight: 306 lb BMI 46.5 BP 115/67 Blood Pressure Location Rt brachial Position Sitting Respiration 17 Pulse 81 Pulse Source Monitor Temp 97.4 F L Temp Source Temporal Pulse Oximetry (%) 97 Oxygen Delivery Method room air Intake Visit Reasons: VENTRAL HERNIA Chief Complaint: ventral hernia Is patient in pain?: No Allergies No Known Allergies Allergy (Verified 09/05/24 14:39) Medications ???Medication ???Instructions ???Recorded ???Confirmed ???Type No Known/Unobtainable [No Known 03/04/17 03/04/17 History Home Medications] PFSH Family History (Updated 09/05/24 @ 14:35 by Josephine Grande) Sister Diabetes Aunt Breast cancer Social History (Updated 09/05/24 @ 14:36 by Josephine Grande) Smoking Status: Former smoker alcohol intake: current alcohol intake frequency: a few times a week HPI HPI HPI: The patient is a 29-year-old male who is being seen today for umbilical/periumbilic al hernias. He states he has had this probably 8 or 9 months and this seems to be causing him some increasing discomfort. He had a CT scan performed through the [facility] that showed 2 hernias. The more superior hernia was about 2 cm fascial defect in about a 4 cm hernia sac. He had a smaller umbilical fat-containing hernia with a fascial defect size measuring about 1.2 cm and hernia sac measuring about 1.6 cm. He presents today for evaluation to discuss treatment. ROS General General: No weight change, appetite, fatigue, colon cancer, breast cancer or weakness HEENT HEENT: No difficulty swallowing, eye injury, eye surgery, swollen glands or hoarseness Endo Endocrine: No thyroid disease, diabetes mellitus, thyroid cancer, Hair loss, heat intolerance or cold intolerance Skin Skin: No rash or changing moles Musc Musculoskeletal: No back problems, arthritis, rheumatoid arthritis, gout or joint pain Cardio Cardiovascular: No murmur, pacemaker, heart disease, atrial fibrillation, high blood pressure, heart attack, heart stent, palpitations, shortness of breat with exertion or chest pain Psych Psychiatric: No depression, anxiety or hearing voices Resp Respiratory: No shortness of breath, No sleep apnea, No cough, No COPD, No asthma, No emphysema and No wheezing Gastro Gastrointestinal: Yes abdominal pain, No nausea or vomiting, No diarrhea, No constipation, No blood in stool, No acid reflux, No hemorrhoids, No ulcers, No gallbladder problem and No black,tarry stools Louis Hematologic: No blood thinners, No blood disorders, No bleeding, No anemia and No blood clots Neuro Neurologic: No system reviewed and no additional complaints, except as documented, No as per HPI, No abnormal gait, No abnormal hearing, No abnormal movements, No abnormal speech, No behavioral changes, No burning sensations, No confusion, No convulsions, No disequilibrium, No dizziness, No localized weakness, No frequent falls, No headache(s), No lack of coordination, No loss of vision, No memory loss, No numbness, No other visual disturbances, No radicular pain, No restless legs, No sensory deficit, No syncope, No tingling, No tremor(s), No weakness and No other Exam Const General: cooperative, healthy appearing and comfortable Nutritional Appearance: overweight HENMT Head: normal to inspection Eyes General: appearance normal, both eyes and all related structures Resp Effort Inspection: normal respiratory effort GI Other: Abdominal examination reveals an umbilical/periumbilic al hernia centered just at or above the umbilicus. This seems to be fat-containing. Overlying skin appears normal Assessment and Plan Assessment and Plan (1) Ventral hernia: Status: Acute Plan: The patient is a 29-year-old male with an umbilical/periumbilic al hernia. I have offered him a robotic repair with mesh. We discussed the details of the planned procedure and he wishes to proceed. This will be scheduled in a timely manner. Coding Level of Care Code Off vis,new,level 4 Diagnoses Ventral hernia K43.9 09/05/24 1546 Date Filippo Reza MD Cosigner Signature: Date (if applicable) CC: Normal [facility] CT ABD/PEL W IVCONon 10-16-[address] ABD/PEL W IVCON * * *Final Report* * * DATE OF EXAM: Jul 13 2024 1:15PM [facility] 0530 - CT ABD/PEL W IVCON / PROCEDURE REASON: ABD/PEL W * * * * Physician Interpretation * * * * EXAMINATION: CT ABDOMEN AND PELVIS WITH IV CONTRAST CLINICAL HISTORY: History of hernia TECHNIQUE: CT of the abdomen and pelvis was performed using standard technique, scanning from just above the dome of the diaphragm to the symphysis pubis. MQ: CTAP_3 Contrast: IV: 100 ml of Omnipaque 350 CT Radiation dose: Integrated Dose-length product (DLP) for this visit = 1036 mGy*cm. CT Dose Reduction Employed: Automated exposure control(AEC) and iterative recon COMPARISON: None. RESULT: Liver: No mass. Biliary: No bile duct dilation. Gallbladder present without evidence of radiopaque stones or wall thickening. Spleen: No mass. No splenomegaly. Pancreas: No mass or duct dilation. Adrenals: No mass. Kidneys: No mass, calculus or hydronephrosis. GI tract: No dilation or wall thickening. Normal appendix. Lymph nodes: No abdominal or pelvic lymphadenopathy. Mesentery/Peritoneum: No ascites or mass. Retroperitoneum: No mass. Vasculature: Abdominal aorta normal in caliber. Suggestion of a small diverticulum at the level of the aortic bifurcation measuring approximately 7 mm. Pelvis: No mass, ascites or fluid collection. Bones/Soft Tissues: Fat-containing supraumbilical hernia with the hernia mouth measuring approximately 2 cm and with the hernia sac measuring approximately 3.4 x 3.8 cm. Additional smaller umbilical fat-containing hernia with the hernia mouth measuring 1.2 cm and with the hernia sac measuring 1.6 x 1.7 cm. No destructive osseous lesion Lower thorax: No acute abnormality. Localizer images: No additional findings. IMPRESSION: Fat-containing supraumbilical and smaller fat containing umbilical hernia. Wrapper Opener: Bioclones Transcribe Date/Time: Jul 13 2024 1:31P Dictated by : BRANDY CAN MD This examination was interpreted and the report reviewed and electronically signed by: BRANDY CAN MD on Jul 13 2024 1:39PM EST [id number] Normal [facility] Abdomen and Pelvis W cont rast Rolando 07-13-2024 Radiology Study observation (narrative) Margarita gillette [facility] IMPRESSION: Fat-containing supraumbilical and smaller fat containing umbilical hernia. Wrapper Opener: Bioclones Transcribe Date/Time: Jul 13 2024 1:31P Dictated by : BRANDY CAN MD This examination was interpreted and the report reviewed and electronically signed by: BRANDY CAN MD on Jul 13 2024 1:39PM [facility] DIVISION OF RADIOLOGY * * *Final Report* * * DATE OF EXAM: Jul 13 2024 1:15PM [facility] 0530 - CT ABD/PEL W IVCON / PROCEDURE REASON: ABD/PEL W * * * * Physician Interpretation * * * * EXAMINATION: CT ABDOMEN AND PELVIS WITH IV CONTRAST CLINICAL HISTORY: History of hernia TECHNIQUE: CT of the abdomen and pelvis was performed using standard technique, scanning from just above the dome of the diaphragm to the symphysis pubis. MQ: CTAP_3 Contrast: IV: 100 ml of Omnipaque 350 CT Radiation dose: Integrated Dose-length product (DLP) for this visit = 1036 mGy*cm. CT Dose Reduction Employed: Automated exposure control(AEC) and iterative recon COMPARISON: None. RESULT: Liver: No mass. Biliary: No bile duct dilation. Gallbladder present without evidence of radiopaque stones or wall thickening. Spleen: No mass. No splenomegaly. Pancreas: No mass or duct dilation. Adrenals: No mass. Kidneys: No mass, calculus or hydronephrosis. GI tract: No dilation or wall thickening. Normal appendix. Lymph nodes: No abdominal or pelvic lymphadenopathy. Mesentery/Peritoneum: No ascites or mass. Retroperitoneum: No mass. Vasculature: Abdominal aorta normal in caliber. Suggestion of a small diverticulum at the level of the aortic bifurcation measuring approximately 7 mm. Pelvis: No mass, ascites or fluid collection. Bones/Soft Tissues: Fat-containing supraumbilical hernia with the hernia mouth measuring approximately 2 cm and with the hernia sac measuring approximately 3.4 x 3.8 cm. Additional smaller umbilical fat-containing hernia with the hernia mouth measuring 1.2 cm and with the hernia sac measuring 1.6 x 1.7 cm. No destructive osseous lesion Lower thorax: No acute abnormality. Localizer images: No additional findings. DIVISION OF RADIOLOGY Provider, [facility] - 07/13/2024 * * *Final Report* * * DATE OF EXAM: Jul 13 2024 1:15PM [facility] 0530 - CT ABD/PEL W IVCON / PROCEDURE REASON: ABD/PEL W * * * * Physician Interpretation * * * * EXAMINATION: CT ABDOMEN AND PELVIS WITH IV CONTRAST CLINICAL HISTORY: History of hernia TECHNIQUE: CT of the abdomen and pelvis was performed using standard technique, scanning from just above the dome of the diaphragm to the symphysis pubis. MQ: CTAP_3 Contrast: IV: 100 ml of Omnipaque 350 CT Radiation dose: Integrated Dose-length product (DLP) for this visit = 1036 mGy*cm. CT Dose Reduction Employed: Automated exposure control(AEC) and iterative recon COMPARISON: None. RESULT: Liver: No mass. Biliary: No bile duct dilation. Gallbladder present without evidence of radiopaque stones or wall thickening. Spleen: No mass. No splenomegaly. Pancreas: No mass or duct dilation. Adrenals: No mass. Kidneys: No mass, calculus or hydronephrosis. GI tract: No dilation or wall thickening. Normal appendix. Lymph nodes: No abdominal or pelvic lymphadenopathy. Mesentery/Peritoneum: No ascites or mass. Retroperitoneum: No mass. Vasculature: Abdominal aorta normal in caliber. Suggestion of a small diverticulum at the level of the aortic bifurcation measuring approximately 7 mm. Pelvis: No mass, ascites or fluid collection. Bones/Soft Tissues: Fat-containing supraumbilical hernia with the hernia mouth measuring approximately 2 cm and with the hernia sac measuring approximately 3.4 x 3.8 cm. Additional smaller umbilical fat-containing hernia with the hernia mouth measuring 1.2 cm and with the hernia sac measuring 1.6 x 1.7 cm. No destructive osseous lesion Lower thorax: No acute abnormality. Localizer images: No additional findings. IMPRESSION IMPRESSION: Fat-containing supraumbilical and smaller fat containing umbilical hernia. Wrapper Opener: DONNELL Transcribe Date/Time: Jul 13 2024 1:31P Dictated by : BRANDY CAN MD This examination was interpreted and the report reviewed and electronically signed by: BRANDY CAN MD on Jul 13 2024 1:39PM EST [facility] CT Abdomen and Pelvis W cont rast IVOrdered By: [facility] Provider on 07-13-2024 [facility] CBC W/Diff, Automatedon 10-0 Absolute Lymph 2.30 X10 3/uL Normal 0.83-4.51 [facility] Comment on above: Performed By: #### L 500.4100, L100.0100, L501.9520, L500.4050 #### [facility] Laboratory [address] [place], [address] Absolute Neut 4.2 X10 3/uL Normal 2.0-7.7 [facility] Comment on above: Performed By: #### L 500.4100, L100.0100, L501.9520, L500.4050 #### [facility] [address] [place], [address] Basophils/100 WBC (Bld) 0.7 % Normal 0-1 [facility] Comment on above: Performed By: #### L 500.4100, L100.0100, L501.9520, L500.4050 #### [facility] [address] [place], [address] Eosinophils/100 WBC (Bld) 2.6 % Normal 0-5 [facility] Comment on above: Performed By: #### L 500.4100, L100.0100, L501.9520, L500.4050 #### [facility] [address] [place], [address] Erythrocyte distribution width (RBC) [Ratio] 12.1 % Normal 11.6-14.6 [facility] Comment on above: Performed By: #### L 500.4100, L100.0100, L501.9520, L500.4050 #### [facility] [address] [place], [address] Hematocrit (Bld) [Volume fraction] 47.4 % Normal 40-54 [facility] Comment on above: Performed By: #### L 500.4100, L100.0100, L501.9520, L500.4050 #### [facility] [address] [place], [address] Hemoglobin (Bld) [Mass/Vol] 16.2 g/dL Normal 13.0-16.5 [facility] Comment on above: Performed By: #### L 500.4100, L100.0100, L501.9520, L500.4050 #### [facility] [address] [place], [address] IG% 0.300 Normal 0.0-0.9 [facility] Comment on above: Result Comment: IG% - Immature Granulocytes (promyelocytes, myelocytes and metamyelocytes) > 1% indicates that a LEFT SHIFT is Present. Performed By: #### L 500.4100, L100.0100, L501.9520, L500.4050 #### [facility] [address] [place], [address] Lymphocytes/100 WBC (Bld) 31.9 % Normal 19-41 [facility] Comment on above: Performed By: #### L 500.4100, L100.0100, L501.9520, L500.4050 #### [facility] [address] [place], [address] MCH (RBC) [Entitic mass] 28.5 pg Normal 27.0-32.0 [facility] Comment on above: Performed By: #### L 500.4100, L100.0100, L501.9520, L500.4050 #### [facility] [address] [place], [address] MCHC (RBC) [Mass/Vol] 34.2 g/dL Normal 32-36 [facility] Comment on above: Performed By: #### L 500.4100, L100.0100, L501.9520, L500.4050 #### [facility] [address] [place], [address] MCV (RBC) [Entitic vol] 83.5 fL Normal 80-94 [facility] Comment on above: Performed By: #### L 500.4100, L100.0100, L501.9520, L500.4050 #### [facility] [address] [place], [address] Monocytes/100 WBC (Bld) 6.3 % Normal 0-10 [facility] Comment on above: Performed By: #### L 500.4100, L100.0100, L501.9520, L500.4050 #### [facility] [address] [place], [address] Neutrophils/100 WBC (Bld) 58.2 % Normal 47-70 [facility] Comment on above: Performed By: #### L 500.4100, L100.0100, L501.9520, L500.4050 #### [facility] [address] [place], [address] Nucleated RBC (Bld) [#/Vol] 0 10*3/uL Normal 0-5 [facility] Comment on above: Performed By: #### L 500.4100, L100.0100, L501.9520, L500.4050 #### [facility] [address] [place], [address] Platelet mean volume (Bld) [Entitic vol] 9.3 fL Normal 6.2-12.0 [facility] Comment on above: Performed By: #### L 500.4100, L100.0100, L501.9520, L500.4050 #### [facility] [facility] [address] [place], [address] Platelets (Bld) [#/Vol] 274 10*3/uL Normal 150-450 [facility] Comment on above: Performed By: #### L 500.4100, L100.0100, L501.9520, L500.4050 #### [facility] [address] [place], [address] RBC (Bld) [#/Vol] 5.68 10*6/uL Normal 4.6-6.2 [facility] Comment on above: Performed By: #### L 500.4100, L100.0100, L501.9520, L500.4050 #### [facility] [address] [place], [address] RDW SD 36.6 fl Normal 35.1-43.9 [facility] Comment on above: Performed By: #### L 500.4100, L100.0100, L501.9520, L500.4050 #### [facility] [address] [place], [address] WBC (Bld) [#/Vol] 7.2 10*3/uL Normal 4.4-11.0 [facility] Comment on above: Performed By: #### L 500.4100, L100.0100, L501.9520, L500.4050 #### [facility] [address] [place], [address] Comprehensive Metabolic Prof ilon 07-06-2024 Albumin [Mass/Vol] 3.8 g/dL Normal 3.2-5.0 [facility] Comment on above: Performed By: #### L 500.4100, L100.0100, L501.9520, L500.4050 ####[facility] [address] [place], [address] Albumin/Globulin [Mass ratio] 1.2 {ratio} Normal 0.9-2.4 [facility] Comment on above: Performed By: #### L 500.4100, L100.0100, L501.9520, L500.4050 ####[facility] [address] [place], [address] ALK P 61 U/L Normal 45-117 [facility] Comment on above: Performed By: #### L 500.4100, L100.0100, L501.9520, L500.4050 ####[facility] [address] [place], [address] ALT [Catalytic activity/Vol] 28 U/L Normal 16-61 [facility] Comment on above: Performed By: #### L 500.4100, L100.0100, L501.9520, L500.4050 ####[facility] [address], [address] AST [Catalytic activity/Vol] 13 U/L Low 15-37 [facility] Comment on above: Performed By: #### L 500.4100, L100.0100, L501.9520, L500.4050 ####[facility] [address] [place], [address] Bilirubin [Mass/Vol] 0.70 mg/dL Normal 0.20-1.00 [facility] Comment on above: Result Comment: For patients on eltrombopag therapy, use of Dimension [place] TBIL is not recommended. Performed By: #### L 500.4100, L100.0100, L501.9520, L500.4050 ####[facility] [address] [place], [address] BUN/CRE 17.2 RATIO Normal 10-20 [facility] Comment on above: Performed By: #### L 500.4100, L100.0100, L501.9520, L500.4050 ####[facility] [address] [place], [address] CA,Total 9.1 mg/dL Normal 8.5-10.1 [facility] Comment on above: Performed By: #### L 500.4100, L100.0100, L501.9520, L500.4050 ####[facility] [address] [place], [address] Chloride [Moles/Vol] 108 mmol/L High 98-107 [facility] Comment on above: Performed By: #### L 500.4100, L100.0100, L501.9520, L500.4050 ####[facility] [address] [place], [address] CO2 [Moles/Vol] 26.0 mmol/L Normal 21.0-32.0 [facility] Comment on above: Performed By: #### L 500.4100, L100.0100, L501.9520, L500.4050 ####[facility] [address] [place], [address] Creatinine [Mass/Vol] 0.87 mg/dL Normal 0.70-1.30 [facility] Comment on above: Result Comment: The validity of the calculated GFR GFRAA in patients over 70 years has not been determined. Clinical correlation is essential. Performed By: #### L 500.4100, L100.0100, L501.9520, L500.4050 ####[facility] [address] [place], [address] EST GFR - AA 132 mL/min Normal >60 [facility] Comment on above: Result Comment: Afri can Swiss GFR Calc Performed By: #### L 500.4100, L100.0100, L501.9520, L500.4050 ####[facility] [address] [place], [address] GAP 5 Normal 5-15 [facility] Comment on above: Performed By: #### L 500.4100, L100.0100, L501.9520, L500.4050 ####[facility] [address] [place], [address] GFR/1.73 sq M.predicted among non-blacks MDRD (S/P/Bld) [Vol rate/Area] 109 mL/min/{1.73_m2} Normal >60 [facility] Comment on above: Result Comment: Non- GFR Calc Performed By: #### L 500.4100, L100.0100, L501.9520, L500.4050 ####[facility] [address] [place], [address] Globulin (S) [Mass/Vol] 3.3 g/dL Normal 2.2-4.2 [facility] Comment on above: Performed By: #### L 500.4100, L100.0100, L501.9520, L500.4050 ####[facility] [address] [place], [address] Glucose [Mass/Vol] 94 mg/dL Normal 74-106 [facility] Comment on above: Performed By: #### L 500.4100, L100.0100, L501.9520, L500.4050 ####[facility] [address] [place], [address] Potassium [Moles/Vol] 4.1 mmol/L Normal 3.5-5.1 [facility] Comment on above: Performed By: #### L 500.4100, L100.0100, L501.9520, L500.4050 ####[facility] [address] [place], [address] Sodium [Moles/Vol] 140 mmol/L Normal 136-145 [facility] Comment on above: Performed By: #### L 500.4100, L100.0100, L501.9520, L500.4050 ####[facility] [address] [place], [address] T PROT 7.1 g/dL Normal 6.4-8.2 [facility] Comment on above: Performed By: #### L 500.4100, L100.0100, L501.9520, L500.4050 ####[facility] [address] [place], [address] Urea nitrogen [Mass/Vol] 15 mg/dL Normal 7-18 [facility] Comment on above: Performed By: #### L 500.4100, L100.0100, L501.9520, L500.4050 ####[facility] [address] [place], [address] Lipid Profileon 07-06-2024 Cholesterol [Mass/Vol] 109 mg/dL Normal 200 [facility] Comment on above: Result Comment: <200 mg/dL Desirable 200-240 mg/dL Borderline >240 mg/dL High Risk Performed By: #### L 500.4100, L100.0100, L501.9520, L500.4050 ####[facility] [address] [place], [address] Cholesterol in HDL [Mass/Vol] 43 mg/dL Normal [facility] Comment on above: Result Comment: The drugs N-Acetylcysteine and Metamizole may falsely depress this assay. Reference Range HDL <40 mg/dL Low HDL Cholesterol HDL >or= 60 mg/dL High HDL Cholesterol Performed By: #### L 500.4100, L100.0100, L501.9520, L500.4050 ####[facility] [address] [place], [address] Cholesterol in LDL [Mass/Vol] 50 mg/dL Normal 0-130 [facility] Comment on above: Performed By: #### L 500.4100, L100.0100, L501.9520, L500.4050 ####[facility] [address] [place], [address] Cholesterol in VLDL [Mass/Vol] 16 mg/dL Normal 5-40 [facility] Comment on above: Performed By: #### L 500.4100, L100.0100, L501.9520, L500.4050 ####[facility] [address] [place], [address] Triglyceride [Mass/Vol] 79 mg/dL Normal [facility] Comment on above: Result Comment: The drugs N-Acetylcysteine and Metamizole may falsely depress this assay. Serum Triglycerides Reference Interval Normal <150 mg/dL Borderline high 150 - 199 mg/dL High 200 - 499 mg/dL Very High > or = 500 mg/dL Performed By: #### L 500.4100, L100.0100, L501.9520, L500.4050 ####[facility] [address] [place], [address] Thyroid Stim Hormone (TSH)on 07-06-2024 TSH 1.450 uIU/mL Normal 0.358-3.740 [facility] Comment on above: Performed By: #### L 500.4100, L100.0100, L501.9520, L500.4050 ####[facility] [address] [place], [address] Absolute lymphocyte countOrd ered By: Dr. Adams on 03-18-2023 Lymphocytes Auto (Unsp spec) [#/Vol] 2.47 10*3/uL 0.83-4.51 [facility] Basophil percentageOrdered B y: Dr. Adams on 03-18-2023 Basophils/100 WBC (Bld) 0.4 % 0-1 [facility] Bilirubin [Mass/Vol] 0.70 mg/dL 0.20-1.00 [facility] Comment on above: For patients on eltr ombopag therapy, use of Dimension [place] TBIL is not recommended. Chloride [Moles/Vol] 105 mmol/L 98-107 [facility] Eosinophils/100 WBC (Bld) 2.5 % 0-5 [facility] Glucose [Mass/Vol] 94 mg/dL 74-106 [facility] Neutrophils (Bld) [#/Vol] 3.9 10*3/uL 2.0-7.7 [facility] Neutrophils/100 WBC (Bld) 54.8 % 47-70 [facility] Potassium [Moles/Vol] 4.0 mmol/L 3.5-5.1 [facility] Protein [Mass/Vol] 7.2 g/dL 6.4-8.2 [facility] Sodium [Moles/Vol] 137 mmol/L 136-145 [facility] WBC (Bld) [#/Vol] 7.2 10*3/uL 4.4-11.0 [facility] Blood erythrocytes count (nu mber/volume)Ordered By: Dr. Adams on 03-18-2023 RBC (Bld) [#/Vol] 5.57 10*6/uL 4.6-6.2 [facility] Blood hemoglobin measurement (mass/volume)Ordered By: Dr. Adams on 03-18-2023 Hemoglobin (Bld) [Mass/Vol] 15.6 g/dL 13.0-16.5 [facility] Blood lymphocytes/100 leukoc ytesOrdered By: Dr. Adams on 03-18-2023 Lymphocytes/100 WBC (Bld) 34.4 % 19-41 [facility] Blood monocytes/100 leukocyt esOrdered By: Dr. Adams on 03-18-2023 Monocytes/100 WBC (Bld) 7.5 % 0-10 [facility] Blood platelet mean volumeOr dered By: Dr. Adams on 03-18-2023 Platelet mean volume (Bld) [Entitic vol] 9.4 fL 6.2-12.0 [facility] Determination of erythrocyte mean corpuscular volume (MCV)Ordered By: Dr. Adams on 03-18-2023 MCV (RBC) [Entitic vol] 85.5 fL 80-94 [facility] Hematocrit Auto (Bld) [Volum e fraction]Ordered By: Dr. Adams on 03-18-2023 Hematocrit (Bld) [Volume fraction] 47.6 % 40-54 [facility] - Chemistry and C hemistry - challengeOrdered By: Dr. Adams on 03-18-2023 ALP [Catalytic activity/Vol] 56 U/L 45-117 [facility] ALT [Catalytic activity/Vol] 32 U/L 16-61 [facility] CO2 [Moles/Vol] 28.0 mmol/L 21.0-32.0 [facility] Globulin (S) [Mass/Vol] 3.5 g/dL 2.2-4.2 [facility] Urea nitrogen/Creatinine [Mass ratio] 21.7 mg/mg 10-20 [facility] - Hematology and Cell countsOrdered By: Dr. Adams on 03-18-2023 Erythrocyte distribution width (RBC) [Entitic vol] 37.4 fL 35.1-43.9 [facility] Erythrocyte distribution width (RBC) [Ratio] 12.1 % 11.6-14.6 [facility] Immature granulocytes/100 WBC (Bld) 0.400 % 0.0-0.9 [facility] Comment on above: IG% - Immature Granu locytes (promyelocytes, myelocytes and metamyelocytes) > 1% indicates that a LEFT SHIFT is Present. MCH (RBC) [Entitic mass] 28.0 pg 27.0-32.0 [facility] Nucleated RBC/100 WBC (Bld) [Ratio] 0 % 0-5 [facility] MCHC Auto (RBC) [Mass/Vol]Or dered By: Dr. Adams on 03-18-2023 MCHC (RBC) [Mass/Vol] 32.8 g/dL 32-36 [facility] No Panel InformationOrdered By: Dr. Adams on 03-18-2023 Estimated GFR (MDRD) Amer 133 mL/min >60 [facility] Comment on above: GFR Calc Estimated GFR (MDRD) Non-Af Amer 110 mL/min >60 [facility] Comment on above: Non- GFR Calc Thyroid Stimulating Hormone (TSH) 1.18 uIU/mL 0.358-3.74 [facility] Platelets bldOrdered By: Dr. Adams on 03-18-2023 Platelets (Bld) [#/Vol] 292 10*3/uL 150-450 [facility] Serum or plasma albumin vani urement (mass/volume)Ordered By: Dr. Adams on 03-18-2023 Albumin [Mass/Vol] 3.7 g/dL 3.2-5.0 [facility] Serum or plasma albumin/glob ulin mass ratioOrdered By: Dr. Adams on 03-18-2023 Albumin/Globulin [Mass ratio] 1.1 {ratio} 0.9-2.4 [facility] Serum or plasma calcium vani urement (mass/volume)Ordered By: Dr. Adams on 03-18-2023 Calcium [Mass/Vol] 9.3 mg/dL 8.5-10.1 [facility] Serum or plasma creatinine m easurement (mass/volume)Ordered By: Dr. Adams on 03-18-2023 Creatinine [Mass/Vol] 0.88 mg/dL 0.70-1.30 [facility] Comment on above: The validity of the calculated GFR & GFRAA in patients over 70 years has not been determined. Clinical correlation is essential. Serum or plasma urea nitroge n measurement (mass/volume)Ordered By: Dr. Adams on 03-18-2023 Urea nitrogen [Mass/Vol] 19 mg/dL 7-18 [facility] Thin prep Papanicolaou smear with manual screeningOrdered By: Dr. Adams on 03-18-2023 Thin prep Papanicolaou smear with manual screening 18 U/L 15-37 [facility] Thin prep Papanicolaou smear with manual screening 4 5-15 [facility] Vital Signs Date Time Vital Sign Value Performing Clinician Faci lity 11-03-2024 17:50-0500 Body temperature 98.3 [degF] Dr. Melly Adams MD Work Phone: 5(792)558-954058 [place] [address] 11-03-2024 17:50-0500 Diastolic blood pressure 80 mm[Hg] Dr. Melly Adams MD Work Phone: 1(796)566-397073 [place] [address] 11-03-2024 17:50-0500 Heart rate 90 /min Dr. Melly Adams MD Work Phone: 7(371)276-736173 [place] [address] 11-03-2024 17:50-0500 Respiratory rate 16 /min Dr. Melly Adams MD Work Phone: 7(988)094-183573 [place] [address] 11-03-2024 17:50-0500 SaO2% (BldA) [Mass fraction] 100 % Dr. Melly Adams MD Work Phone: 0(999)727-409573 [place] [address] 11-03-2024 17:50-0500 Systolic blood pressure 147 mm[Hg] Dr. Melly Adams MD Work Phone: 8(196)642-277658 [place] [address] 11-03-2024 10:21-0500 Body height 172.[address] Melly Adams MD Work Phone: 1(014)130-730073 [place] [address] 11-03-2024 10:21-0500 Body mass index (BMI) [Ratio] 45.4 kg/m2 Dr. Melly Adams MD Work Phone: 7(167)671-157258 [place] [address] 11-03-2024 10:21-0500 Body weight 135.[address] Melly Adams MD Work Phone: 3(987)365-522858 [place] [address] 09-05-2024 14:37-0500 Body mass index (BMI) [Ratio] 46.5 kg/m2 Dr. Melly Adams MD Work Phone: 7(011)353-178258 [place] [address] 09-05-2024 14:37-0500 Body temperature 97.4 [degF] Dr. Melly Adams MD Work Phone: 7(185)971-387758 [place] [address] 09-05-2024 14:37-0500 Body weight 138.[address] Melly Adams MD Work Phone: [facility] 09-05-2024 14:37-0500 Diastolic blood pressure 67 mm[Hg] Dr. Melly Adams MD Work Phone: [facility] 09-05-2024 14:37-0500 Heart rate 81 /min Dr. Melly Adams MD Work Phone: [facility] 09-05-2024 14:37-0500 Respiratory rate 17 /min Dr. Melly Adams MD Work Phone: [facility] 09-05-2024 14:37-0500 SaO2% (BldA) [Mass fraction] 97 % Dr. Melly Adams MD Work Phone: [facility] 09-05-2024 14:37-0500 Systolic blood pressure 115 mm[Hg] Dr. Melly Adams MD Work Phone: [facility] Encounters Encounter Date Encounter Type Care Provider Facility Start: 04-04-2025 End: 04-04-[address] Melly Adams MD Work Phone: -Laboratory Phy Office 3rd Flr Start: 04-04-2025 End: 04-04-[address] Melly Adams MD -Laboratory Phy Office 3rd Flr Start: 04-04-2025 End: 04-04-2025 ambulatory Melly Chi Mj Facility:[facility] Start: 11-23-2024 End: 11-23-[address] Melly Adams MD Work Phone: [facility] Work Phone: Start: 11-23-2024 End: 11-23-[address] Melly Adams MD -Laboratory, Phy Office 3rd Flr Start: 11-23-2024 End: 11-23-2024 ambulatory Melly Chi Mj Facility:[facility] Start: 11-16-2024 End: 11-16-[address] Filippo Reza MD -[facility] Work Phone: Start: 11-16-2024 End: 11-16-2024 ambulatory Melly Chi Mj [place] Start: 11-03-2024 Non-patient / Non-visit [facility]. Filippo Reza MD -[facility] Start: 11-03-2024 End: 11-03-2024 Admission to same day surgery center Dr. Filippo Reza MD [facility] Start: 11-03-2024 End: 11-03-[address] [facility] Facility:[facility] Start: 09-05-2024 End: 09-05-[address] Filippo Reza MD -[facility] Work Phone: Start: 09-05-2024 End: 09-05-[address] [facility] [place] Start: 07-13-2024 End: 07-13-2024 ambulatory [facility] Facility:[facility] Start: 07-13-2024 End: 07-13-2024 Subsequent hospital visit by physician [facility] Wstr (I-Stat) Work Phone: Cat Scan Start: 07-06-2024 End: 07-06-2024 [facility] Facility:[facility] Start: 03-18-2023 End: 03-18-2023 [facility] Work Phone: Start: 03-18-2023 End: 03-18-2023 Patient encounter procedure [facility] Procedures Date Procedure Procedure Detail Performing Clinician Start: 04-04-2025 SARS-CoV-2, Influenz a & RSV (PCR) Dr. Melly Adams MD Work Phone: Start: 11-23-2024 X-ray of chest, PA a nd lateral views Dr. Melly Adams MD Work Phone: Start: 11-23-2024 SARS-CoV-2, Influenz a & RSV (PCR) Dr. Melly Adams MD Work Phone: Start: 07-13-2024 Ct abdomen & pelvis w/contrast material [facility] Provider Plan of Treatment Date Care Activity Detail Author Start: 03-04-2027 Urine microalbumin profile DTaP,Tdap,Td Vaccine (3 - Td or Tdap) [facility] Start: 11-03-2024 Patient discharge [facility] Start: 11-03-2024 Anes hrna rpr upr ab d lmbr&ventral hernia&dehisc ANES HRNA RPR LMBR&VNT&/DEHS [facility] Start: 11-03-2024 RPR AA HRN 1ST 3-10 RDC RPR AA HRN 1ST 3-10 RDC [facility] Start: 05-29-2024 Covid-19 Vaccine ( season) Covid-19 Vaccine ( season) [facility] Start: 05-29-2024 Influenza vaccination Influenza Vacc ine (#1) [facility] Start: 2013 Hepatitis B Vaccine (1 of 3 - 19+ 3-dose series) Hepatitis B Vaccine (1 of 3 - 19+ 3-dose series) [facility] Start: 02-15-2012 Anxiety Screening Anxiety Screening [facility] Start: 02-15-2012 Depression Screening Depression Scre ening [facility] Start: 02-15-2012 Hepatitis C screening Hepatitis C Sc reening [facility] Start: 02-15-2012 HIV screening HIV Screening [facility] Patient referral [facility] Work Phone: Immunizations Immunization Date Immunization Notes Care Provider Kannan mack 10-17-2019 influenza virus vaccine, unspecified formulation Ct (I-Stat) Work Phone: [facility] 03-04-2017 tetanus toxoid, redu harrison diphtheria toxoid, and acellular pertussis vaccine, adsorbed [facility] 05-12-2011 Meningococcal, MCV4, unspecified conjugate formulation(groups A, C, Y and W-135) Ct (I-Stat) Work Phone: [facility] 05-12-2011 tetanus toxoid, redu harrison diphtheria toxoid, and acellular pertussis vaccine, adsorbed Ct (I-Stat) Work Phone: [facility] Payers Date Payer Category Payer Self-pay [id number] 2022 Private Health Insurance LORRIE GARCES OAP [id number] 2022-Present [phone] [address] [facility] [place] [address] Open Access [id number] 2022 Private Health Insurance [id number] Unknown [id number] Unknown [id number] Unknown [id number] Unknown [id number] Unknown [id number] Unknown [id number] Unknown [id number] Unknown [id number] Social History Date Type Detail Facility Start: 03-04-2017 Tobacco smoking stat [facility] Unknown if ever smoked [facility] Start: 1995 Sex Assigned At Male [facility] Start: 06-05-2018 [facility] tobacco smoker [facility] Start: 06-05-2018 Tobacco use and exposure Former smokeless tobacco user [facility] Start: 06-05-2018 Alcoholic beverage intake Current non-drinker of alcohol (finding) [facility] Start: 06-05-2018 End: 07-13-2024 History of Social function [facility] Start: 06-05-2018 End: 07-13-2024 Tobacco use panel [facility] National Score (1-100), lower number is lower risk 62 [facility] Start: 1995 Sex assigned at Not on file [facility] Start: 10-24-2024 Tobacco smoking stat [facility] Never smoked tobacco (finding) [facility] Start: 12-07-2024 Sex Male (finding) [facility] Medical Equipment Procedure Code Equipment Code Equipment Origin al Text Equipment Identifier Dates Extra-gynaecolog ical surgical mesh, composite-polymer [id number] FDA Start: 11-03-2024 Goals Date Patient Goal Desired Activity /State Functional Status Date Assessment Result Facility 11-03-2024 Functional status Patient Activi ty Ambulates;Bathroom Privilege [facility] Work Phone: Mental Status Date Assessment Result Facility 11-03-2024 Cognitive function Voice/Name [facility] Work Phone: Radiology Diagnostic study note 11-23-2024 Note Date & Type Note Facility 11-23-2024 Radiology Diagnostic study note [facility] Imaging Services [address], [place] [id number] Chest PA and Lateral MR#: [id number] Acct: [id number] Name: MJ TAVERA Rep #: [id number] : 1995 M 29 From: Ismael Martínez DO PCP: Dr. Melly Adams MD Status: REG Millie ROSALES Study:Chest PA and Lateral Date of Exam: 11/23/24 Exam# [id number] Ordering Dr: Melly Adams MD PROCEDURE: PA and lateral chest radiographs, two views REASON FOR EXAM: Shortness of breath TECHNIQUE: PA and lateral chest radiographs were obtained. COMPARISON: None. FINDINGS: The cardiomediastinal silhouette is within normal limits. No pneumothorax, focal airspace consolidation, or pleural effusion. Osseous structures appear intact. RAD/Chest PA and Lateral IMPRESSION: No acute cardiopulmonary process is demonstrated. If there are persistent symptoms or clinical concern, short-term follow-up CT evaluation may be considered. Reading Location: [facility] CC: Dr. Melly Adams MD ~ Wrapper Opener: Signed [facility] Clinical Note 11-03-2024 Note Date & Type Note Facility 11-03-2024 Note [facility] Medical Records Department [address] [place] [address] History Physical Exam 11/03/24 1109 MR#: [id number] Acct: [id number] Name: MJ TAVERA Rep #: [id number] : 1995 29 From: Filippo Reza MD PCP: Dr. Melly Adams MD Status:[facility] Location: [place] [address] HPI - General General Date of Admission: 11/03/24 Date of Service: 11/03/24 Chief Complaint: ventral hernia HPI Narrative The patient is a 29-year-old male with umbilical/periumbilical hernias. He states he has had this probably 8 or 9 months and this seems to be causing him some increasing discomfort. He had a CT scan performed through the [facility] that showed 2 hernias. The more superior hernia was about 2 cm fascial defect in about a 4 cm hernia sac. He had a smaller umbilical fat-containing hernia with a fascial defect size measuring about 1.2 cm and hernia sac measuring about 1.6 cm. He presents today for robotic hernia repair surgery [facility] Medical History Wears glasses Alcohol use Migraine headache Heartburn Non-smoker Home Medications ???Medication ???Instructions ???Recorded ???Last Taken ???Type No Known/Unobtainable [No Known 03/04/17 Unknown History Home Medications] Allergy/AdvReac Type Severity Reaction Status Date / Time No Known Allergies Allergy Verified 11/03/24 10:19 Family History Sister Diabetes Aunt Breast cancer Surgical History Hx of hand surgery Social History Smoking Status: Never smoker alcohol intake: current alcohol intake frequency: a few times a week Vital Signs Vital Signs Vital Signs: 11/03/24 10:21 11/03/24 11:06 Temperature 97.8 F 97.8 F Temperature Source Temporal Pulse Rate 91 91 Respiratory Rate 16 16 Blood Pressure 130/79 H 130/79 H Blood Pressure Mean 96 Blood Pressure Source Monitor Blood Pressure Position Semi-Fowlers Blood Pressure Location Left Arm Pulse Ox 98 98 Oxygen Delivery Method Room Air Room Air Weight Weight: 299 lb Body Mass Index (BMI) 45.4 Physical Exam Const alert, oriented x3 and no apparent distress HEENT normocephalic GI normal to inspection, nondistended, normoactive bowel sounds Assessment Plan Assessment/Plan (1) Ventral hernia: PLAN: Plan robotic ventral hernia repair with mesh today Charges/Coding Visit Charges Inpatient E M: 43144 Init Hosp L1 11/03/24 1111 Cosigner Signature (if applicable): CC: Dr. Filippo Reza MD; Dr. Melly Adams MD Signed [facility] Evaluation note 09-05-2024 Note Date & Type Note Facility 09-05-2024 Evaluation note Diagnosis Onset Date Resolution Ventral hernia acute September 052023 2:23pm Ventral hernia acute November 032024 10:00am Ventral hernia acute October 292024 2:38pm [facility] Work Phone: History of Present illness Narrative 07-13-2024 Shobha Hannah Elise, RT(R) - 07/13/2024 3:00 PM EDT Note Date & Type Note Facility 07-13-2024 History of Presen t illness Narrative Radiology Service Progress Note DATE OF SERVICE: July 13, 2024 TIME: 1:48 PM PATIENT IDENTITY VERIFICATION COMPLETED USING TWO (2) STANDARD IDENTIFIERS: Name and Date of confirmed by patient verbally. FALL SCREENING: Has the patient had 2 falls in the last year or 1 fall with injury or currently using an Ambulatory Assistive Device (Walker, Cane, Wheelchair, Crutches, etc.)? No PATIENT GENDER DATA: Male PATIENT RELEVANT IMPLANT DATA REVIEWED: Yes PATIENT PRESENTS WITH AN IMPLANTABLE OR ATTACHED PULP HOUSE SUPERVISOR: No ALLERGIES: Reviewed and unchanged CONTRAST ALLERGY: NO. EXAM: CT -CONTRAST INDUCED NEPHROPATHY RISK FACTORS: Not applicable CREATININE: No results found for: CREAT, EGFROTH, EGFRAA P.O.C.T. RESULTS: POC done: Yes, See Lab Tab July 13, 2024 TREATMENT: N/A PERIPHERAL IV DATA: Ambulatory: A peripheral IV was started in the Left antecubital site with a Angio cath: 22 gauge. RADIOLOGY DEPARTMENT: CT; Exam(s) Completed: Abdomen/Pelvis SIGNATURE: RT Anselmo(R) PATIENT NAME: Mj Tavera DATE: July 13, 2024 TIME: 1:48 PM documented in this encounter [facility] Progress note 07-13-2024 Note Date & Type Note Facility 07-13-2024 Note HNO ID: [id number] Author: ELISE SAUER RT(Marli) Service: ? Author Type: Brim Molder Type: Progress Notes Filed: 07/13/2024 13:48 Note Text: Radiology Service Progress Note DATE OF SERVICE: July 13, 2024 TIME: 1:48 PM PATIENT IDENTITY VERIFICATION COMPLETED USING TWO (2) STANDARD IDENTIFIERS: Name and Date of confirmed by patient verbally. FALL SCREENING: Has the patient had 2 falls in the last year or 1 fall with injury or currently using an Ambulatory Assistive Device (Walker, Cane, Wheelchair, Crutches, etc.)? No PATIENT GENDER DATA: Male PATIENT RELEVANT IMPLANT DATA REVIEWED: Yes PATIENT PRESENTS WITH AN IMPLANTABLE OR ATTACHED PULP HOUSE SUPERVISOR: No ALLERGIES: Reviewed and unchanged CONTRAST ALLERGY: NO. EXAM: CT -CONTRAST INDUCED NEPHROPATHY RISK FACTORS: Not applicable CREATININE: No results found for: CREAT, EGFROTH, EGFRAA P.O.C.T. RESULTS: POC done: Yes, See Lab Tab July 13, 2024 TREATMENT: N/A PERIPHERAL IV DATA: Ambulatory: A peripheral IV was started in the Left antecubital site with a Angio cath: 22 gauge. RADIOLOGY DEPARTMENT: CT; Exam(s) Completed: Abdomen/Pelvis SIGNATURE: RT Anselmo(R) PATIENT NAME: Mj Tavera DATE: July 13, 2024 TIME: 1:48 PM [facility] Evaluation note Note Date & Type Note Facility Evaluation note No assessment information availa [facility] Work Phone: Reason for referral (narrative) Note Date & Type Note Facility Reason for referral (narrative) No reason for referral information available [facility] Work Phone: Reason for visit Narrative Diagnostic Procedure Only (Routine) - Closed Note Date & Type Note Facility Reason for visit Narrative Specialty Diagnoses / Procedures Referred By Contac t Referred To Contact Radiology / RADIO CT SCAN [facility] Diagnoses Ventral hernia without obstruction or gangrene ct scan/ orders is scanned in to epic and syngo Procedures CT ABD & PELVIS W/CONTRAST CT ORAL PREP Melly Adams Chi [address] [place] [address] Scan [facility] [address] [place] [address] Referral ID Status Reason Start Date Expiration Date Visits Re quested Visits Authorized [id number] Closed 07/06/2024 01/02/2025 2 2 [facility] Advance Directives No Advanced Directives Records Found Advance Directive Response Recorded Date/ Time Living Will No March 04, 2017 1 0:29pm Power of Curtain Cutter No March 04, 2017 10:29pm Advance Directive Response Recorded Date/ Time Living Will No October 24 2:28pm Power of Curtain Cutter No October 24, 2024 2:28pm Summary Purpose Family History No Family History Records Found Relationship Condition Age at Onset Recorded Date/T angi sister Diabetes mellitus Unknown aunt Malignant neoplasm of breast Unknown Chief Complaint and Reason for Visit Chief Complaint Admit Date VENTRAL HERNIA September 05, 2024 2 :23pm Laparoscopic, Ventral/Umb Hernia Rep w/m esh November 03, 2024 10:00am Laparoscopic, Ventral/Umb Hernia Rep w/m esh November 03, 2024 11:09am VENTRAL HERNIA DOS 11/03November 16 2:38pm Reason for Visit Admit Date Ventral hernia September 05, 2024 2 :23pm Ventral hernia November 03, 2024 1 0:00am Ventral hernia November 16, 2024 2:38pm Additional Source Comments Care Teams (unrecognized sec tion and content) Team Status: Active Member Role Status Dates No Primary Care Physician Family Provider Active Dr. Melly Adams MD Primary Care Provider Active Team Status: Inactive Member Role Status Dates Dr. Melly Adams MD Primary Care Provi danya, Attending Provider, Referring Provider Active Global Category Manager Relationship Specialty Start Date End Date Melly Adams Chi PCP - General Gerontology 06/05/18 Global Category Manager Relationship Specialty Start Date End Date Melly Adams Chi PCP - General Gerontology 06/05/18 Team Status: Active Member Role Status Dates Dr. Melly Adams MD Primary Care Provider Active Team Status: Inactive Member Role Status Dates Dr. Melly Adams MD Primary Care Provider Active Start: September 05, 2024 End: September 05, 2024 Dr. Melly Adams MD Referring Provider Active Start: September 05, 2024 End: September 05, 2024 Dr. Filippo Reza MD Attending Provider Active Start: September 05, 2024 End: September 05, 2024 Team Status: Inactive Member Role Status Dates Dr. Melly Adams MD Primary Care Provider Active Start: November 03, 2024 End: November 03, 2024 Dr. Filippo Reza MD Attending Provider Active Start: November 03, 2024 End: November 03, 2024 Dr. Filippo Reza MD Referring Provider Active Start: November 03, 2024 End: November 03, 2024 Team Status: Active Member Role Status Dates Dr. Melly Adams MD Primary Care Provider Active Start: November 03, 2024 Dr. Filippo Reza MD Attending Provider Active Start: November 03, 2024 Dr. Filippo Reza MD Referring Provider Active Start: November 03, 2024 Dr. Filippo Reza MD Other Provider Active St art: November 03, 2024 Team Status: Inactive Member Role Status Dates Dr. Melly Adams MD Primary Care Provider Active Start: November 16, 2024 End: November 16, 2024 Dr. Melly Adams MD Referring Provider Active Start: November 16, 2024 End: November 16, 2024 Dr. Filippo Reza MD Attending Provider Active Start: November 16, 2024 End: November 16, 2024 Team Status: Inactive Member Role Status Dates Dr. Melly Adams MD Primary Care Provider Active Start: November 23, 2024 End: November 23, 2024 Dr. Melly Adams MD Attending Provider Active Start: November 23, 2024 End: November 23, 2024 Dr. Melly Adams MD Referring Provider Active Start: November 23, 2024 End: November 23, 2024 Team Status: Active Member Role/Relationship Status Dates Dr. Melly Adams MD Primary Care Provider Active Team Status: Inactive Member Role/Relationship Status Dates Dr. Melly Adams MD Primary Care Provider Active Start: April 04, 2025 End: April 04, 2025 Dr. Melly Adams MD Attending Provider Active Start: April 04, 2025 End: April 04, 2025 Goals (unrecognized section and content) Goals may be documented in a n alternate sectionGoals may be documented in an alternate section Source Comments (unrecognize d section and content) In the event this informatio n is protected by the Federal Confidentiality of Alcohol and Drug Abuse Patient Records regulations: The Federal rules restrict any use of the information to criminally investigate or prosecute any alcohol or drug abuse patient.[facility] the event this information is protected by the Federal Confidentiality of Alcohol and Drug Abuse Patient Records regulations: The Federal rules restrict any use of the information to criminally investigate or prosecute any alcohol or drug abuse patient.[facility] Reason for Visit (unrecogniz ed section and content) Reason Comments Radiology CT Specialty Diagnoses / Procedures Referred By Lito t Referred To Contact Radiology / RADIO CT SCAN [facility] Diagnoses Ventral hernia without obstruction or gangrene ct scan/ orders is scanned in to [employer] [place] and [employer] Procedures CT ABD & PELVIS W/CONTRAST CT ORAL PREP Melly Adams Chi [address] [place] [address] Scan [facility] [address] [place] [address] Referral ID Status Reason Start Date Expiration Date Visits Re quested Visits Authorized [id number] Closed 07/06/2024 01/02/2025 2 2 (unrecognized sect ion and content) No Status Records FoundNo Status Records Found INFORMATION SOURCE (unrecogn ized section and content) DATE CREATED AUTHOR 07/15/2024 [facility] DATE CREATED AUTHOR AUTHOR'S ORGANIZ ATION 04/15/2025 [facility] FOR RECORDS PERTAINING TO PATIENTS WHO ARE OR HAVE BEEN ENROLLED IN A CHEMICAL DEPENDENCY/SUBSTANCEABUSE PROGRAM, SOME INFORMATION MAY BE OMITTED. This clinical summary was aggregated from multiple sources. Caution should be exercised in using it in the provision of clinical care. This summary normalizes information from multiple sources, and as a consequence, information in this document may materially change the coding, format and clinical context of patient data. In addition, data may be omitted in some cases. CLINICAL DECISIONS SHOULD BE BASED ON THE PRIMARY CLINICAL RECORDS. [employer] provides no warranty or guarantee of the accuracy or completeness of information in this document.
--- OUTSIDE RECORDS SUMMARY | 2025-07-17 13:26 | XMS RPT_ITS | CCD ---
Author Organization [facility] Care Team Providers Care Surface Boss Name Role Phone Mj Melly Chi Primary Care Provider MJ, MELLY CHI Referring Unavailable MJ, MELLY [...] and Respiratory syncytial virus RNAOrdered By: Melly dAams on 04-04-2025 SARS-CoV-2 (COVID-19) RNA HERNAN+probe Ql (Unsp spec) [facility] M100.678on 04-04-2025 M100.678 Pending SARS-CoV-2 (COVID 19) Negative INFLUENZA A Negative INFLUENZA B Negative RSV PCR Negative Normal [facility] Comment on above: Performed By: #### M 100.678 #### [facility] [address] [place], [address] Absolute neutrophil countOrd ered By: Melly Adams on 11-23-2024 Neutrophils (Bld) [#/Vol] 8.2 10*3/uL High 2.0-7.7 [facility] BUN/creatinine ratioOrdered By: Melly Adams on 11-23-2024 Urea nitrogen/Creatinine [Mass ratio] 18.3 mg/mg 10-20 [facility] Basic Metabolic Profile (BMP )on 11-23-2024 Anion gap [Moles/Vol] 10 mmol/L Normal 5-15 [facility] Comment on above: Performed By: #### L 300.8000, L500.2500, M100.678, L100.0100 #### [facility] [address] [place], [address] BUN/CRE 18.3 RATIO Normal 10- [facility] Comment on above: Performed By: #### L 300.8000, L500.2500, M100.678, L100.0100 #### [facility] [address] [place], [address] Calcium [Mass/Vol] 9.8 mg/dL Normal 7.6-11.0 [facility] Comment on above: Performed By: #### L 300.8000, L500.2500, M100.678, L100.0100 #### [facility] [address] [place], [address] Chloride [Moles/Vol] 100 mmol/L Normal 96-108 [facility] Comment on above: Performed By: #### L 300.8000, L500.2500, M100.678, L100.0100 #### [facility] [address] [place], [address] CO2 [Moles/Vol] 26.5 mmol/L Normal 22.0-29.0 [facility] Comment on above: Performed By: #### L 300.8000, L500.2500, M100.678, L100.0100 #### [facility] [address] [place], [address] Creatinine [Mass/Vol] 0.8 mg/dL Normal 0.8-1.3 [facility] Comment on above: Performed By: #### L 300.8000, L500.2500, M100.678, L100.0100 #### [facility] [address] [place], [address] GFR/1.73 sq M.predicted among non-blacks MDRD (S/P/Bld) [Vol rate/Area] 121 mL/min/{1.73_m2} Normal >60 [facility] Comment on above: Result Comment: mL/m in/1.73m2 CKD-EPI Creatinine Equation (2020) Performed By: #### L 300.8000, L500.2500, M100.678, L100.0100 #### [facility] [address] [place], [address] Glucose [Mass/Vol] 117 mg/dL High 70-99 [facility] Comment on above: Performed By: #### L 300.8000, L500.2500, M100.678, L100.0100 #### [facility] [address] [place], [address] Potassium [Moles/Vol] 4.6 mmol/L Normal 3.3-5.1 [facility] Comment on above: Performed By: #### L 300.8000, L500.2500, M100.678, L100.0100 #### [facility] [address] [place], [address] Sodium [Moles/Vol] 136 mmol/L Normal 133-145 [facility] Comment on above: Performed By: #### L 300.8000, L500.2500, M100.678, L100.0100 #### [facility] [address] [place], [address] Urea nitrogen [Mass/Vol] 15 mg/dL Normal 4-19 [facility] Comment on above: Performed By: #### L 300.8000, L500.2500, M100.678, L100.0100 #### [facility] [address] [place], [address] Basophil percentageOrdered B y: Melly Adams on 11-23-2024 Basophils/100 WBC (Bld) 0.5 % 0-1 [facility] CBC W/Diff, Automatedon 10-30 Absolute Lymph 2.85 X10 3/uL Normal 0.83-4.51 [facility] Comment on above: Performed By: #### L 300.8000, L500.2500, M100.678, L100.0100 #### [facility] [address] [place], [address] Absolute Neut 8.2 X10 3/uL High 2.0-7.7 [facility] Comment on above: Performed By: #### L 300.8000, L500.2500, M100.678, L100.0100 #### [facility] [address], [address] Basophils/100 WBC (Bld) 0.5 % Normal 0-1 [facility] Comment on above: Performed By: #### L 300.8000, L500.2500, M100.678, L100.0100 #### [facility] [address] [place], [address] Eosinophils/100 WBC (Bld) 2.5 % Normal 0-5 [facility] Comment on above: Performed By: #### L 300.8000, L500.2500, M100.678, L100.0100 #### [facility] [address], [address] Erythrocyte distribution width (RBC) [Ratio] 11.9 % Normal 11.6-14.6 [facility] Comment on above: Performed By: #### L 300.8000, L500.2500, M100.678, L100.0100 #### [facility] [address] [place], [address] Hematocrit (Bld) [Volume fraction] 49.0 % Normal 40-54 [facility] Comment on above: Performed By: #### L 300.8000, L500.2500, M100.678, L100.0100 #### [facility] [address] [place], [address] Hemoglobin (Bld) [Mass/Vol] 16.3 g/dL Normal 13.0-16.5 [facility] Comment on above: Performed By: #### L 300.8000, L500.2500, M100.678, L100.0100 #### [facility] [address], [address] IG% 0.400 Normal 0.0-0.9 [facility] Comment on above: Result Comment: IG% - Immature Granulocytes (promyelocytes, myelocytes and metamyelocytes) > 1% indicates that a LEFT SHIFT is Present. Performed By: #### L 300.8000, L500.2500, M100.678, L100.0100 #### [facility] [address] [place], [address] Lymphocytes/100 WBC (Bld) 23.4 % Normal 19-41 [facility] Comment on above: Performed By: #### L 300.8000, L500.2500, M100.678, L100.0100 #### [facility] [address] [place], [address] MCH (RBC) [Entitic mass] 27.9 pg Normal 27.0-32.0 [facility] Comment on above: Performed By: #### L 300.8000, L500.2500, M100.678, L100.0100 #### [facility] [address] [place], [address] MCHC (RBC) [Mass/Vol] 33.3 g/dL Normal 32-36 [facility] Comment on above: Performed By: #### L 300.8000, L500.2500, M100.678, L100.0100 #### [facility] [address], [address] MCV (RBC) [Entitic vol] 83.9 fL Normal 80-[address] [facility] Comment on above: Performed By: #### L 300.8000, L500.2500, M100.678, L100.0100 #### [facility] [address] [place], [address] Monocytes/100 WBC (Bld) 6.3 % Normal 0-[address] [facility] Comment on above: Performed By: #### L 300.8000, L500.2500, M100.678, L100.0100 #### [facility] [address] [place], [address] Neutrophils/100 WBC (Bld) 66.9 % Normal 47-70 [facility] Comment on above: Performed By: #### L 300.8000, L500.2500, M100.678, L100.0100 #### [facility] [address], [address] Nucleated RBC (Bld) [#/Vol] 0 10*3/uL Normal 0-5 [facility] Comment on above: Performed By: #### L 300.8000, L500.2500, M100.678, L100.0100 #### [facility] [address] [place], [address] Platelet mean volume (Bld) [Entitic vol] 8.8 fL Normal 6.2-12.0 [facility] Comment on above: Performed By: #### L 300.8000, L500.2500, M100.678, L100.0100 #### [facility] [address] [place], [address] Platelets (Bld) [#/Vol] 361 10*3/uL Normal 150-450 [facility] Comment on above: Performed By: #### L 300.8000, L500.2500, M100.678, L100.0100 #### [facility] [address] [place], [address] RBC (Bld) [#/Vol] 5.84 10*6/uL Normal 4.6-6.2 [facility] Comment on above: Performed By: #### L 300.8000, L500.2500, M100.678, L100.0100 #### [facility] [address] [place], [address] RDW SD 35.8 fl Normal 35.1-43.9 [facility] Comment on above: Performed By: #### L 300.8000, L500.2500, M100.678, L100.0100 #### [facility] [address] [place], [address] WBC (Bld) [#/Vol] 12.2 10*3/uL High 4.4-11.0 [facility] Comment on above: Performed By: #### L 300.8000, L500.2500, M100.678, L100.0100 #### [facility] [address] [place], [address] Carbon dioxide measurementOr dered By: Melly Adams on 11-23-2024 CO2 [Moles/Vol] 26.5 mmol/L 22.0-29.0 [facility] Chest PA and Lateralon 11-23 Chest PA and Lateral [facility] [address] [place], [place] [address] Chest PA and Lateral MR#: [id number] Acct: [id number] Name: MJ TAVERA Rep #: [id number] : 1995 M 29 From: Julio C Treviño i DO PCP: Dr. Melly Adams MD Status: REG CLI Study: Chest PA and Lateral Date of Exam: 11/23/24 Exam# [id number] Ordering Dr: Melly Adams MD PROCEDURE: PA [...] CT evaluation may be considered. Reading Location: [facility] CC: Dr. Melly Adams MD Loss Control Representative: Signed Normal [facility] Chloride measurementOrdered By: Melly Adams on 11-23-2024 Chloride [Moles/Vol] 100 mmol/L 96-108 [facility] Creatinine [Moles/Vol]Ordere d By: Melly Adams on 11-23-2024 Creatinine [Mass/Vol] 0.8 mg/dL 0.8-1.3 [facility] D-Dimer Quantitative (DVT/PE )on 11-23-2024 D-DIMER QUANT < 0.27 Low 0.27-0.49 [facility] Comment on above: Result Comment: NORM AL D-Dimer level (<0.50) indicates no DVT or PE. Performed By: #### L 300.8000, L500.2500, M100.678, L100.0100 #### [facility] [address] [place], [address] D-dimer measurement for deep venous thrombosisOrdered By: Melly dAams on 11-23-2024 D-Dimer Quantitative (PE/DVT) < 0.27 FEU/ug/m Low 0.27-0.49 [facility] Comment on above: NORMAL D-Dimer level (<0.50) indicates no DVT or PE. Eosinophil percentageOrdered By: Melly Adams on 11-23-2024 Eosinophils/100 WBC (Bld) 2.5 % 0-5 [facility] Erythrocyte distribution wid th ratioOrdered By: Melly Adams 11-23-2024 Erythrocyte distribution width (RBC) [Ratio] 11.9 % 11.6-14.6 [facility] Erythrocyte distribution wid th standard deviationOrdered By: Melly Adams 11-23-2024 Erythrocyte distribution width (RBC) [Entitic vol] 35.8 fL 35.1-43.9 [facility] GFR/1.73 sq M.predicted becca g non-blacks MDRD (S/P/Bld) [Vol rate/Area]Ordered By: Melly Adams 11-23-2024 Estimated GFR (MDRD) Non-Af Amer 121 >60 [facility] Comment on above: mL/min/1.73m2 CKD-EP I Creatinine Equation (2020) Hematocrit Auto (Bld) [Volum e fraction]Ordered By: Melly Adams 11-23-2024 Hematocrit (Bld) [Volume fraction] 49.0 % 40-54 [facility] Hemoglobin measurementOrdere d By: Melly Adams 11-23-2024 Hemoglobin (Bld) [Mass/Vol] 16.3 g/dL 13.0-16.5 [facility] Immature granulocytes/100 WB C Auto (Bld)Ordered By: Melly Adams 11-23-2024 Immature granulocytes/100 WBC (Bld) 0.400 % 0.0-0.9 [facility] Comment on above: IG% - Immature Granu locytes (promyelocytes, myelocytes and metamyelocytes) > 1% indicates that a LEFT SHIFT is Present. Influenza virus A and B and SARS-CoV-2 (COVID-19) and Respiratory syncytial virus RNAOrdered By: Melly Adams on 11-23-2024 SARS-CoV-2 (COVID-19) RNA HERNAN+probe Ql (Unsp spec) Influenzae A Abnormal [facility] Lymphocytes Auto (Unsp spec) [#/Vol]Ordered By: Melly Adams on 11-23-2024 Lymphocytes (Bld) [#/Vol] 2.85 10*3/uL 0.83-4.51 [facility] Lymphocytes/100 WBC Auto (Un sp spec)Ordered By: Melly Adams on 11-23-2024 Lymphocytes/100 WBC (Bld) 23.4 % 19-41 [facility] M100.678on 11-23-2024 SARS-CoV-2 (COVID-19) Ab IA Ql Normal Reference Range = Negative FLUABV+SARS-CoV-2+RSV Pnl Resp HERNAN+probe GeneXpert Instrument, PCR method Copy of report sent to Infection Control Printer [id number] 11/23/24 1409 VSICK. SARS-CoV-2 (COVID 19) Negative INFLUENZA A A Positive A INFLUENZA B Negative RSV PCR Negative INFLUENZAE A Normal [facility] Comment on above: Performed By: #### L 300.8000, L500.2500, M100.678, L100.0100 #### [facility] [address] [facility] [place], [address] MCV (mean corpuscular volume ) determinationOrdered By: Melly Adams on 11-23-2024 MCV (RBC) [Entitic vol] 83.9 fL 80-94 [facility] Mean corpuscular hemoglobin (MCH) determinationOrdered By: Melly Adams 11-23-2024 MCH (RBC) [Entitic mass] 27.9 pg 27.0-32.0 [facility] Mean corpuscular hemoglobin concentration (MCHC) determinationOrdered By: Melly Adams on 11-23-2024 MCHC (RBC) [Mass/Vol] 33.3 g/dL 32-36 [facility] Mean platelet volume determi nationOrdered By: Melly Adams on 11-23-2024 Platelet mean volume (Bld) [Entitic vol] 8.8 fL 6.2-12.0 [facility] Monocyte percentageOrdered B y: Melly Adams on 11-23-2024 Monocytes/100 WBC (Bld) 6.3 % 0-10 [facility] Neutrophil percentageOrdered By: Melly Adams on 11-23-2024 Neutrophils/100 WBC (Bld) 66.9 % 47-70 [facility] Nucleated red blood cell per centageOrdered By: Melly Adams on 11-23-2024 Nucleated RBC/100 WBC (Bld) [Ratio] 0 % 0-5 [facility] Platelet countOrdered By: Nghia Adams on 11-23-2024 Platelets (Bld) [#/Vol] 361 10*3/uL 150-450 [facility] RBC Auto (Bld) [#/Vol]Ordere d By: Melly Adams on 11-23-2024 RBC (Bld) [#/Vol] 5.84 10*6/uL 4.6-6.2 [facility] Serum glucose measurement (m ass/volume)Ordered By: Melly Adams on 11-23-2024 Glucose [Mass/Vol] 117 mg/dL High 70-99 [facility] Serum or plasma anion gap de termination (moles/volume)Ordered By: Melly Adams on 11-23-2024 Anion gap [Moles/Vol] 10 mmol/L 5-15 [facility] Serum or plasma calcium vani urement (mass/volume)Ordered By: Melly Adams on 11-23-2024 Calcium [Mass/Vol] 9.8 mg/dL 7.6-11.0 [facility] Serum or plasma potassium me asurementOrdered By: Melly Adams on 11-23-2024 Potassium [Moles/Vol] 4.6 mmol/L 3.3-5.1 [facility] Serum or plasma sodium measu rement (moles/volume)Ordered By: Melly Adams on 11-23-2024 Sodium [Moles/Vol] 136 mmol/L 133-145 [facility] Serum or plasma urea nitroge n measurement (mass/volume)Ordered By: Melly Aadms on 11-23-2024 Urea nitrogen [Mass/Vol] 15 mg/dL -19 [facility] White blood cell (WBC) count Ordered By: Melly Adams on 11-23-2024 WBC (Bld) [#/Vol] 12.2 10*3/uL High 4.4-11.0 [facility] Surgery Visit Reporton 11-16 Surgery Visit Report [facility] [address] [place] [address] OFFICE VISIT Date of Service: 11/16/24 MR#: [id number] Acct: [id number] Name: MJ TAVERA Rep #: [id number] : 1995 Provider: Dr. Filippo tate MD Age/Sex: 29/M Location: [facility] Status: Signed Intake Vital Signs 11/03/24 10:21 [...] Op Diagnoses Ventral hernia K43.9 [facility] Medical History Wears glasses Alcohol use Migraine [...] needed. 11/16/24 1454 Date Filippo Reza MD [facility] Signature: Date (if applicable) CC: Dr. Melly Adams MD [facility] Discharge Instructionon Discharge Instruction [facility] Medical Records Department [address] [place] [address] Instructions for Home/Discharge Instructions 11/03/24 1525 MR#: [id number] Acct: [id number] Name: MJ TAVERA Rep #: [id number] : 1995 29 From: Filippo Reza MD PCP: Dr. Melly Adams MD Status:REG [facility] Discharge Instructions Diet Discharge Diet: Light diet [...] Provider: Melly Adams Chi Instructions Print Language: Syriac Discharge Orders/Prescriptions Prescriptions: New oxycodone-acetaminoph en [Percocet] 5-325 mg tablet 1 tab PO Q8H PRN (Reason: pain) 3 Days Qty: 14 0RF Referrals / Follow Up: Melly Adams Chi, MD [Primary Care Provider] - Disposition Disposition (needs filled in before D/C Order can be placed): Home, Self Care 11/03/24 1530 Filippo Reza MD CC: Dr. Melly Adams MD Signed [facility] MR/POSTOP.[facility] 11-03-2024 MR/POSTOP.[facility] Medical Records Department [address] [place] [address] Anesthesia Postop Eval I 11/03/24 1524 MR#: [id number] Acct: [id number] Name: MJ TAVERA Rep #: [id number] : 1995 29 From: Karla Araya CRNA PCP: Dr. Melly Adams MD Status:REG SD Y Race: C Location: [place] [address] Anesthesia: Postop Eval I Current Vital Signs Temperature: 97.4 F Pulse Rate: 89 Blood Pressure: 158/77 Respiratory Rate: 20 Pulse Ox: 99 Assessment Airway patent: Yes Spontaneous unlabored respirations: Yes nausea: No Vomiting: No Anesthesia Complication: No Fluid Hydration Crystalloid volume administer (ml): 1,800 Total IV fluid infused: 1,800 Progress Note Anesthesia document: Postop Eval 1 completed: Yes 11/03/24 1528 Date Karla Araya CREDIT COMPLIANCE OFFICER Cosigner Signature: Date CC: Signed Normal [facility] [id number] 11-03-2024 MR/POSTOPAN2 [facility] Medical Records Department [address] [place] [address] Anesthesia Postop Eval II 11/03/24 1554 MR#: [id number] Acct: [id number] Name: MJ TAVERA Rep #: [id number] : 1995 29 From: Eduin Patterson MD PCP: Dr. Melly Adams MD Status:REG SDC Y Race: C Location: [place] [address] Anesthesia Postop Eval I Sum Postop Eval Completion status Anesthesia document: Postop Eval 1 completed: Yes Anesthesia Postop Eval I Summary Anesthesia Postop Eval I Summary: Anesthesia Postop Eval I: Assessment Summary Airway patent Yes 11/03/24 15:27 CREDIT COMPLIANCE OFFICER.LMIL Spontaneous unlabored Yes 11/03/24 15:27 CREDIT COMPLIANCE OFFICER.LMIL respirations Mental status nausea No 11/03/24 15:27 CREDIT COMPLIANCE OFFICER.LMIL Vomiting No 11/03/24 15:27 CREDIT COMPLIANCE OFFICER.LMIL Anesthesia Postop Eval I: Fluid Summary Crystalloid volume administer 1,800 11/03/24 15:27 CREDIT COMPLIANCE OFFICER.LMIL (ml) Colloids volume administered ( ml) Blood Product volume administered (ml) Total IV fluid infused 1,800 11/03/24 15:27 CREDIT COMPLIANCE OFFICER.LMIL Anesthesia Postop Eval I: Summary Notes Anesthesia Complication No 11/03/24 15:27 CREDIT COMPLIANCE OFFICER.LMIL Anesthesia Complication Comment: Post-operative progress note Anesthesia: Postop Eval II Evaluation Mental status: Awake and Calm Pain Level: 1 nausea: No Vomiting: No Complications Anesthesia Complication: No 11/03/24 1555 Date Eduin Patterson MD Cosigner Signature: Date CC: Signed Normal [facility] Operative Reporton 5 Operative Report [facility] Medical Records Department [address] [place] [address] Operative Report 11/03/24 1602 MR#: [id number] Acct: [id number] Name: MJ TAVERA Rep #: [id number] : 1995 29 From: Filippo Reza MD PCP: Dr. Melly Adams MD Status:[facility] Location: [place] [address] Problems Associated Problem List Diagnoses (1) Ventral hernia: Procedures Digestive 40xxx-49xxx: 17656 RPR AA HRN 12-05 [facility] Operative Report (Standard) Operative Information Date of Procedure: 11/03/24 Pre-Operative Diagnosis: Ventral hernia Post-Operative Diagnosis: Same Surgery/Procedure Performed: Robotic assisted ventral hernia repair with mesh pumping plant operator: Yes Electrical Helper: Maria M Uriostegui Tasks completed by surgical first assistant: Closing, Retracting and Other Additional staff assistant?: No Type of Anesthesia: General and Local [...] switched to an 8 mm trocar. The [employer] robot was then wheeled into position and [...] closed using 3-0 Vicryl placed in a [id number] manner. The remaining trocars were opened up and insufflation was allowed to escape. The trocars removed. Local anesthetic was injected into each of the incisions. The incisions were then closed with 4-0 Vicryl suture. Skin glue was applied as dressing. He was awakened by anesthesia. Abdominal binder was placed. He was taken to recovery in good condition. An ROUGHENER was utilized as a surgical first assistant. Her role included assistance with skin closure [...] MD; Dr. Melly Adams MD Signed Normal [facility] Surgery Visit Reporton 09-05 Surgery Visit Report [facility] [address] [place] [address] OFFICE VISIT Date of Service: 09/05/24 MR#: [id number] Acct: [id number] Name: MJ TAVERA Rep #: [id number] : 1995 Provider: Dr. Filippo tate MD Age/Sex: 29/M Location: [facility] Status: Signed Intake Vital Signs 09/05/24 14:37 [...] had a CT scan performed through the [facility] that showed 2 hernias. The more superior [...] Cosigner Signature: Date (if applicable) CC: Normal [facility] CT ABD/PEL W IVCONon 10-16-[address] ABD/PEL W IVCON * * *Final Report* * * DATE OF EXAM: Jul 13 2024 1:15PM [facility] 0530 - CT ABD/PEL W IVCON / [...] supraumbilical and smaller fat containing umbilical hernia. Loss Control Representative: [place] Transcribe Date/Time: Jul 13 2024 1:31P Dictated by : BRANDY CAN MD This examination was interpreted and the report reviewed and electronically signed by: BRANDY CAN MD on Jul 13 2024 1:39PM EST [id number] Normal [facility] CT Abdomen and Pelvis W cont rast Rolando 07-13-2024 Radiology Study observation (narrative) Margarita gillette [facility] IMPRESSION: Fat-containing supraumbilical and smaller fat containing umbilical hernia. Loss Control Representative: [place] Transcribe Date/Time: Jul 13 2024 1:31P Dictated by : BRANDY CAN MD This examination was interpreted and the report reviewed and electronically signed by: BRANDY CAN MD on Jul 13 2024 1:39PM [facility] DIVISION OF RADIOLOGY * * *Final Report* * * DATE OF EXAM: Jul 13 2024 1:15PM [facility] 0530 - CT ABD/PEL W IVCON / [...] No additional findings. DIVISION OF RADIOLOGY Provider, [facility] - 07/13/2024 * * *Final Report* * * DATE OF EXAM: Jul 13 2024 1:15PM [facility] 0530 - CT ABD/PEL W IVCON / [...] supraumbilical and smaller fat containing umbilical hernia. Loss Control Representative: [place] Transcribe Date/Time: Jul 13 2024 1:31P Dictated by : BRANDY CAN MD This examination was interpreted and the report reviewed and electronically signed by: BRANDY CAN MD on Jul 13 2024 1:39PM EST [facility] CT Abdomen and Pelvis W cont rast IVOrdered By: Ccf Provider on 07-13-2024 [facility] CBC W/Diff, Automatedon 10-0 Absolute Lymph 2.30 X10 3/uL Normal 0.83-4.51 [facility] Comment on above: Performed By: #### L 500.4100, L100.0100, L501.9520, L500.4050 #### [facility] [address] [place], [address] Absolute Neut 4.2 X10 3/uL Normal 2.0-7.7 [facility] Comment on above: Performed By: #### L 500.4100, L100.0100, L501.9520, L500.4050 #### [facility] [address] [place], [address] Basophils/100 WBC (Bld) 0.7 % Normal 0-1 [facility] Comment on above: Performed By: #### L 500.4100, L100.0100, L501.9520, L500.4050 #### [facility] [address] [place], [address] Eosinophils/100 WBC (Bld) 2.6 % Normal 0-5 [facility] Comment on above: Performed By: #### L 500.4100, L100.0100, L501.9520, L500.4050 #### [facility] [address] [place], [address] Erythrocyte distribution width (RBC) [Ratio] 12.1 % Normal 11.6-14.6 [facility] Comment on above: Performed By: #### L 500.4100, L100.0100, L501.9520, L500.4050 #### [facility] [address] [place], [address] Hematocrit (Bld) [Volume fraction] 47.4 % Normal 40-54 [facility] Comment on above: Performed By: #### L 500.4100, L100.0100, L501.9520, L500.4050 #### [facility] [address] [place], [address] Hemoglobin (Bld) [Mass/Vol] 16.2 g/dL Normal 13.0-16.5 [facility] Comment on above: Performed By: #### L 500.4100, L100.0100, L501.9520, L500.4050 #### [facility] [address] [place], [address] IG% 0.300 Normal 0.0-0.9 [facility] Comment on above: Result Comment: IG% - Immature Granulocytes (promyelocytes, myelocytes and metamyelocytes) > 1% indicates that a LEFT SHIFT is Present. Performed By: #### L 500.4100, L100.0100, L501.9520, L500.4050 #### [facility] [address] [place], [address] Lymphocytes/100 WBC (Bld) 31.9 % Normal 19-41 [facility] Comment on above: Performed By: #### L 500.4100, L100.0100, L501.9520, L500.4050 #### [facility] [address] [place], [address] MCH (RBC) [Entitic mass] 28.5 pg Normal 27.0-32.0 [facility] Comment on above: Performed By: #### L 500.4100, L100.0100, L501.9520, L500.4050 #### [facility] [address] [place], [address] MCHC (RBC) [Mass/Vol] 34.2 g/dL Normal 32-36 [facility] Comment on above: Performed By: #### L 500.4100, L100.0100, L501.9520, L500.4050 #### [facility] [address] [place], [address] MCV (RBC) [Entitic vol] 83.5 fL Normal 80-[address] [facility] Comment on above: Performed By: #### L 500.4100, L100.0100, L501.9520, L500.4050 #### [facility] [address] [place], [address] Monocytes/100 WBC (Bld) 6.3 % Normal 0-[address] [facility] Comment on above: Performed By: #### L 500.4100, L100.0100, L501.9520, L500.4050 #### [facility] [address] [place], [address] Neutrophils/100 WBC (Bld) 58.2 % Normal 47-70 [facility] Comment on above: Performed By: #### L 500.4100, L100.0100, L501.9520, L500.4050 #### [facility] [address] [place], [address] Nucleated RBC (Bld) [#/Vol] 0 10*3/uL Normal 0-5 [facility] Comment on above: Performed By: #### L 500.4100, L100.0100, L501.9520, L500.4050 #### [facility] [address] [place], [address] Platelet mean volume (Bld) [Entitic vol] 9.3 fL Normal 6.2-12.0 [facility] Comment on above: Performed By: #### L 500.4100, L100.0100, L501.9520, L500.4050 #### [facility] [address] [place], [address] Platelets (Bld) [#/Vol] 274 10*3/uL Normal 150-450 [facility] Comment on above: Performed By: #### L 500.4100, L100.0100, L501.9520, L500.4050 #### [facility] [address] [place], [address] RBC (Bld) [#/Vol] 5.68 10*6/uL Normal 4.6-6.2 [facility] Comment on above: Performed By: #### L 500.4100, L100.0100, L501.9520, L500.4050 #### [facility] [address] [place], [address] RDW SD 36.6 fl Normal 35.1-43.9 [facility] Comment on above: Performed By: #### L 500.4100, L100.0100, L501.9520, L500.4050 #### [facility] [address], [address] WBC (Bld) [#/Vol] 7.2 10*3/uL Normal 4.4-11.0 [facility] Comment on above: Performed By: #### L 500.4100, L100.0100, L501.9520, L500.4050 #### [facility] [address] [place], [address] Comprehensive Metabolic Prof ilon 07-06-2024 Albumin [Mass/Vol] 3.8 g/dL Normal 3.2-5.0 [facility] Comment on above: Performed By: #### L 500.4100, L100.0100, L501.9520, L500.4050 ####[facility] [address] [place], [address] Albumin/Globulin [Mass ratio] 1.2 {ratio} Normal 0.9-2.4 [facility] Comment on above: Performed By: #### L 500.4100, L100.0100, L501.9520, L500.4050 ####[facility] [address] [place], [address] ALK P 61 U/L Normal 45-117 [facility] Comment on above: Performed By: #### L 500.4100, L100.0100, L501.9520, L500.4050 ####[facility] [address] [place], [address] ALT [Catalytic activity/Vol] 28 U/L Normal 16-61 [facility] Comment on above: Performed By: #### L 500.4100, L100.0100, L501.9520, L500.4050 ####[facility] [address] [place], [address] AST [Catalytic activity/Vol] 13 U/L Low 15-37 [facility] Comment on above: Performed By: #### L 500.4100, L100.0100, L501.9520, L500.4050 ####[facility] [address] [place], [address] Bilirubin [Mass/Vol] 0.70 mg/dL Normal 0.20-1.00 [facility] Comment on above: Result Comment: For patients on eltrombopag therapy, use of Dimension [place] TBIL is not recommended. Performed By: #### L 500.4100, L100.0100, L501.9520, L500.4050 ####[facility] [address] [place], [address] BUN/CRE 17.2 RATIO Normal 10-20 [facility] Comment on above: Performed By: #### L 500.4100, L100.0100, L501.9520, L500.4050 ####[facility] [address] [place], [address] CA,Total 9.1 mg/dL Normal 8.5-10.1 [facility] Comment on above: Performed By: #### L 500.4100, L100.0100, L501.9520, L500.4050 ####[facility] [address], [address] Chloride [Moles/Vol] 108 mmol/L High 98-107 [facility] Comment on above: Performed By: #### L 500.4100, L100.0100, L501.9520, L500.4050 ####[facility] [address] [place], [address] CO2 [Moles/Vol] 26.0 mmol/L Normal 21.0-32.0 [facility] Comment on above: Performed By: #### L 500.4100, L100.0100, L501.9520, L500.4050 ####[facility] [address] [place], [address] Creatinine [Mass/Vol] 0.87 mg/dL Normal 0.70-1.30 [facility] Comment on above: Result Comment: The validity of the calculated GFR GFRAA in patients over 70 years has not been determined. Clinical correlation is essential. Performed By: #### L 500.4100, L100.0100, L501.9520, L500.4050 ####[facility] [address] [place], [address] EST GFR - AA 132 mL/min Normal >60 [facility] Comment on above: Result Comment: Afri can Venezuelan GFR Calc Performed By: #### L 500.4100, L100.0100, L501.9520, L500.4050 ####[facility] [address], [address] GAP 5 Normal 5-15 [facility] Comment on above: Performed By: #### L 500.4100, L100.0100, L501.9520, L500.4050 ####[facility] [address] [place], [address] GFR/1.73 sq M.predicted among non-blacks MDRD (S/P/Bld) [Vol rate/Area] 109 mL/min/{1.73_m2} Normal >60 [facility] Comment on above: Result Comment: Non- GFR Calc Performed By: #### L 500.4100, L100.0100, L501.9520, L500.4050 ####[facility] [address] [place], [address] Globulin (S) [Mass/Vol] 3.3 g/dL Normal 2.2-4.[address] [facility] Comment on above: Performed By: #### L 500.4100, L100.0100, L501.9520, L500.4050 ####[facility] [address] [place], [address] Glucose [Mass/Vol] 94 mg/dL Normal 74-106 [facility] Comment on above: Performed By: #### L 500.4100, L100.0100, L501.9520, L500.4050 ####[facility] [address] [place], [address] Potassium [Moles/Vol] 4.1 mmol/L Normal 3.5-5.1 [facility] Comment on above: Performed By: #### L 500.4100, L100.0100, L501.9520, L500.4050 ####[facility] [address], [address] Sodium [Moles/Vol] 140 mmol/L Normal 136-145 [facility] Comment on above: Performed By: #### L 500.4100, L100.0100, L501.9520, L500.4050 ####[facility] [address] [place], [address] T PROT 7.1 g/dL Normal 6.4-8.2 [facility] Comment on above: Performed By: #### L 500.4100, L100.0100, L501.9520, L500.4050 ####[facility] [address], [address] Urea nitrogen [Mass/Vol] 15 mg/dL Normal 7-18 [facility] Comment on above: Performed By: #### L 500.4100, L100.0100, L501.9520, L500.4050 ####[facility] [address] [place], [address] Lipid Profileon 07-06-2024 Cholesterol [Mass/Vol] 109 mg/dL Normal 200 [facility] Comment on above: Result Comment: <200 mg/dL Desirable 200-240 mg/dL Borderline >240 mg/dL High Risk Performed By: #### L 500.4100, L100.0100, L501.9520, L500.4050 ####[facility] [address] [place], [address] Cholesterol in HDL [Mass/Vol] 43 mg/dL Normal [facility] Comment on above: Result Comment: The drugs N-Acetylcysteine and Metamizole may falsely depress this assay. Reference Range HDL <40 mg/dL Low HDL Cholesterol HDL >or= 60 mg/dL High HDL Cholesterol Performed By: #### L 500.4100, L100.0100, L501.9520, L500.4050 ####[facility] [address] [place], [address] Cholesterol in LDL [Mass/Vol] 50 mg/dL Normal 0-130 [facility] Comment on above: Performed By: #### L 500.4100, L100.0100, L501.9520, L500.4050 ####[facility] [address] [place], [address] Cholesterol in VLDL [Mass/Vol] 16 mg/dL Normal 5-40 [facility] Comment on above: Performed By: #### L 500.4100, L100.0100, L501.9520, L500.4050 ####[facility] [address] [place], [address] Triglyceride [Mass/Vol] 79 mg/dL Normal [facility] Comment on above: Result Comment: The drugs N-Acetylcysteine and Metamizole may falsely depress this assay. Serum Triglycerides Reference Interval Normal <150 mg/dL Borderline high 150 - 199 mg/dL High 200 - 499 mg/dL Very High > or = 500 mg/dL Performed By: #### L 500.4100, L100.0100, L501.9520, L500.4050 ####[facility] [address] [place], [address] Thyroid Stim Hormone (TSH)on 07-06-2024 TSH 1.450 uIU/mL Normal 0.358-3.740 [facility] Comment on above: Performed By: #### L 500.4100, L100.0100, L501.9520, L500.4050 ####[facility] [address] [place], [address] Absolute lymphocyte countOrd ered By: Dr. Adams on 03-18-2023 Lymphocytes Auto (Unsp spec) [#/Vol] 2.47 10*3/uL 0.83-4.51 [facility] Basophil percentageOrdered B y: Dr. Adams on 03-18-2023 Basophils/100 WBC (Bld) 0.4 % 0-1 [facility] Bilirubin [Mass/Vol] 0.70 mg/dL 0.20-1.00 [facility] Comment on above: For patients on eltr ombopag therapy, use of Dimension [place] TBIL is not recommended. Chloride [Moles/Vol] 105 mmol/L 98-107 [facility] Eosinophils/100 WBC (Bld) 2.5 % 0-5 [facility] Glucose [Mass/Vol] 94 mg/dL 74-106 [facility] Neutrophils (Bld) [#/Vol] 3.9 10*3/uL 2.0-7.7 [facility] Neutrophils/100 WBC (Bld) 54.8 % 47-70 [facility] Potassium [Moles/Vol] 4.0 mmol/L 3.5-5.1 [facility] Protein [Mass/Vol] 7.2 g/dL 6.4-8.2 [facility] Sodium [Moles/Vol] 137 mmol/L 136-145 [facility] WBC (Bld) [#/Vol] 7.2 10*3/uL 4.4-11.0 [facility] Blood erythrocytes count (nu mber/volume)Ordered By: Dr. Adams on 03-18-2023 RBC (Bld) [#/Vol] 5.57 10*6/uL 4.6-6.2 [facility] Blood hemoglobin measurement (mass/volume)Ordered By: Dr. Adams on 03-18-2023 Hemoglobin (Bld) [Mass/Vol] 15.6 g/dL 13.0-16.5 [facility] Blood lymphocytes/100 leukoc ytesOrdered By: Dr. Adams on 03-18-2023 Lymphocytes/100 WBC (Bld) 34.4 % 19-41 [facility] Blood monocytes/100 leukocyt esOrdered By: Dr. Adams on 03-18-2023 Monocytes/100 WBC (Bld) 7.5 % 0-10 [facility] Blood platelet mean volumeOr dered By: Dr. Adams on 03-18-2023 Platelet mean volume (Bld) [Entitic vol] 9.4 fL 6.2-12.0 [facility] Determination of erythrocyte mean corpuscular volume (MCV)Ordered By: Dr. Adams on 03-18-2023 MCV (RBC) [Entitic vol] 85.5 fL 80-94 [facility] Hematocrit Auto (Bld) [Volum e fraction]Ordered By: Dr. Adams on 03-18-2023 Hematocrit (Bld) [Volume fraction] 47.6 % 40-54 [facility] - Chemistry and C hemistry - challengeOrdered By: Dr. Adams on 03-18-2023 ALP [Catalytic activity/Vol] 56 U/L 45-117 [facility] ALT [Catalytic activity/Vol] 32 U/L 16-61 [facility] CO2 [Moles/Vol] 28.0 mmol/L 21.0-32.0 [facility] Globulin (S) [Mass/Vol] 3.5 g/dL 2.2-4.[address] [facility] Urea nitrogen/Creatinine [Mass ratio] 21.7 mg/mg 10-20 [facility] - Hematology and Cell countsOrdered By: Dr. Adams on 03-18-2023 Erythrocyte distribution width (RBC) [Entitic vol] 37.4 fL 35.1-43.9 [facility] Erythrocyte distribution width (RBC) [Ratio] 12.1 % 11.6-14.6 [facility] Immature granulocytes/100 WBC (Bld) 0.400 % 0.0-0.9 [facility] Comment on above: IG% - Immature Granu locytes (promyelocytes, myelocytes and metamyelocytes) > 1% indicates that a LEFT SHIFT is Present. MCH (RBC) [Entitic mass] 28.0 pg 27.0-32.0 [facility] Nucleated RBC/100 WBC (Bld) [Ratio] 0 % 0-5 [facility] MCHC Auto (RBC) [Mass/Vol]Or dered By: Dr. Adams on 03-18-2023 MCHC (RBC) [Mass/Vol] 32.8 g/dL 32-36 [facility] No Panel InformationOrdered By: Dr. Adams on 03-18-2023 Estimated GFR (MDRD) Amer 133 mL/min >60 [facility] Comment on above: GFR Calc Estimated GFR (MDRD) Non-Af Amer 110 mL/min >60 [facility] Comment on above: Non- GFR Calc Thyroid Stimulating Hormone (TSH) 1.18 uIU/mL 0.358-3.74 [facility] Platelets bldOrdered By: Dr. Adams on 03-18-2023 Platelets (Bld) [#/Vol] 292 10*3/uL 150-450 [facility] Serum or plasma albumin vani urement (mass/volume)Ordered By: Dr. Adams on 03-18-2023 Albumin [Mass/Vol] 3.7 g/dL 3.2-5.0 [facility] Serum or plasma albumin/glob ulin mass ratioOrdered By: Dr. Adams on 03-18-2023 Albumin/Globulin [Mass ratio] 1.1 {ratio} 0.9-2.4 [facility] Serum or plasma calcium vani urement (mass/volume)Ordered By: Dr. Adams on 03-18-2023 Calcium [Mass/Vol] 9.3 mg/dL 8.5-10.1 [facility] Serum or plasma creatinine m easurement (mass/volume)Ordered By: Dr. Adams on 03-18-2023 Creatinine [Mass/Vol] 0.88 mg/dL 0.70-1.30 [facility] Comment on above: The validity of the calculated GFR & GFRAA in patients over 70 years has not been determined. Clinical correlation is essential. Serum or plasma urea nitroge n measurement (mass/volume)Ordered By: Dr. Adams on 03-18-2023 Urea nitrogen [Mass/Vol] 19 mg/dL 7-18 [facility] Thin prep Papanicolaou smear with manual screeningOrdered By: Dr. Adams on 03-18-2023 Thin prep Papanicolaou smear with manual screening 18 U/L 15-37 [facility] Thin prep Papanicolaou smear with manual screening 4 5-15 [facility] Vital Signs Date Time Vital Sign Value Performing Clinician Faci lity 11-03-2024 17:50-0500 Body temperature 98.3 [degF] Dr. Melly Adams MD Work Phone: [phone] [place] [address] 11-03-2024 17:50-0500 Diastolic blood pressure 80 mm[Hg] Dr. Melly Adams MD Work Phone: 0(407)666-383956 [place] [address] 11-03-2024 17:50-0500 Heart rate 90 /min Dr. Melly Adams MD Work Phone: 0(534)969-870256 [place] [address] 11-03-2024 17:50-0500 Respiratory rate 16 /min Dr. Melly Adams MD Work Phone: 2(934)789-583056 [place] [address] 11-03-2024 17:50-0500 SaO2% (BldA) [Mass fraction] 100 % Dr. Melly Adams MD Work Phone: 4(180)372-302656 [place] [address] 11-03-2024 17:50-0500 Systolic blood pressure 147 mm[Hg] Dr. Melly Adams MD Work Phone: 8(319)705-500818 [place] [address] 11-03-2024 10:21-0500 Body height 172.[address] Melly Adams MD Work Phone: 8(959)975-359556 [place] [address] 11-03-2024 10:21-0500 Body mass index (BMI) [Ratio] 45.4 kg/m2 Dr. Melly Adams MD Work Phone: 6(708)659-851018 [place] [address] 11-03-2024 10:21-0500 Body weight 135.[address] Melly Adams MD Work Phone: 8(366)843-090618 [place] [address] 09-05-2024 14:37-0500 Body mass index (BMI) [Ratio] 46.5 kg/m2 Dr. Melly Adams MD Work Phone: 6([phone])474-498118 [place] [address] 09-05-2024 14:37-0500 Body temperature 97.4 [degF] Dr. Melly Adams MD Work Phone: 5(573)323-913818 [place] [address] 09-05-2024 14:37-0500 Body weight 138.[address] Melly Adams MD Work Phone: [facility] 09-05-2024 14:37-0500 Diastolic blood pressure 67 mm[Hg] Dr. Melly Adams MD Work Phone: [facility] 09-05-2024 14:37-0500 Heart rate 81 /min Dr. Melly Adams MD Work Phone: [facility] 09-05-2024 14:37-0500 Respiratory rate 17 /min Dr. Melly Adams MD Work Phone: [facility] 09-05-2024 14:37-0500 SaO2% (BldA) [Mass fraction] 97 % Dr. Melly Adams MD Work Phone: [facility] 09-05-2024 14:37-0500 Systolic blood pressure 115 mm[Hg] Dr. Melly Adams MD Work Phone: [facility] Encounters Encounter Date Encounter Type Care Provider Facility Start: 04-04-2025 End: 04-04-[address] Melly Adams MD Work Phone: -Laboratory Phy Office 3rd Flr Start: 04-04-2025 End: 04-04-[address] Melly Adams MD -Laboratory Phy Office 3rd Flr Start: 04-04-2025 End: 04-04-2025 ambulatory Melly Chi Mj Facility:[facility] Start: 11-23-2024 End: 11-23-[address] Melly Adams MD Work Phone: [facility] Work Phone: Start: 11-23-2024 End: 11-23-[address] Melly Adams MD -Laboratory, Phy Office 3rd Flr Start: 11-23-2024 End: 11-23-2024 ambulatory Melly Chi Mj Facility:[facility] Start: 11-16-2024 End: 11-16-[address] Filippo Reza MD -[facility] Work Phone: Start: 11-16-2024 End: 11-16-2024 ambulatory Melly Chi Mj Facility:[facility] Start: 11-03-2024 Non-patient / Non-visit [facility]. Filippo Reza MD -[facility] Start: 11-03-2024 End: 11-03-2024 Admission to same day surgery center Dr. Filippo Reza MD -[facility] Start: 11-03-2024 End: 11-03-2024 ambulatory [facility] Facility:[facility] Start: 09-05-2024 End: 09-05-[address] Filippo Reza MD -[facility] Work Phone: Start: 09-05-2024 End: 09-05-2024 ambulatory [facility] Facility:[facility] Start: 07-13-2024 End: 07-13-2024 ambulatory [facility] Facility:[facility] Start: 07-13-2024 End: 07-13-2024 Subsequent hospital visit by physician [facility] Work Phone: Cat Scan Start: 07-06-2024 End: 07-06-2024 [facility] Facility:[facility] Start: 03-18-2023 End: 03-18-2023 [facility] Work Phone: Start: 03-18-2023 End: 03-18-2023 Patient encounter procedure [facility]-Laboratory Procedures Date Procedure Procedure Detail Performing Clinician [...] DTaP,Tdap,Td Vaccine (3 - Td or Tdap) [facility] Start: 11-03-2024 Patient discharge [facility] Start: 11-03-2024 Anes hrna rpr upr ab d lmbr&ventral hernia&dehisc ANES HRNA RPR LMBR&VNT&/DEHS [facility] Start: 11-03-2024 RPR AA HRN 1ST 3-10 RDC RPR AA HRN 1ST 3-10 RDC [facility] Start: 05-29-2024 Covid-19 Vaccine ( season) Covid-19 Vaccine ( season) [facility] Start: 05-29-2024 Influenza vaccination Influenza Vacc ine (#1) [facility] Start: 2013 Hepatitis B Vaccine (1 of 3 - 19+ 3-dose series) Hepatitis B Vaccine (1 of 3 - 19+ 3-dose series) [facility] Start: 02-15-2012 Anxiety Screening Anxiety Screening [facility] Start: 02-15-2012 Depression Screening Depression Scre ening [facility] Start: 02-15-2012 Hepatitis C screening Hepatitis C Sc reening [facility] Start: 02-15-2012 HIV screening HIV Screening [facility] Patient referral [facility] Work Phone: Immunizations Immunization Date Immunization Notes Care Provider Kannan mack 10-17-2019 influenza virus vaccine, unspecified formulation Ct ([facility]) Work Phone: [facility] 03-04-2017 tetanus toxoid, redu harrison diphtheria toxoid, and acellular pertussis vaccine, adsorbed [facility] 05-12-2011 Meningococcal, MCV4, unspecified conjugate formulation(groups A, C, Y and W-135) Ct ([facility]) Work Phone: [facility] 05-12-2011 tetanus toxoid, redu harrison diphtheria toxoid, and acellular pertussis vaccine, adsorbed Ct ([facility]) Work Phone: [facility] Payers Date Payer Category Payer Self-pay [id number] 2022 Private Health Insurance LORRIE GARCES OAP [id number] 2022-Present [phone] [address] [facility] [place] [address] Open Access [id number] 2022 Private Health Insurance [id number] Unknown [id number] Unknown [id number] Unknown [id number] Unknown [id number] Unknown [id number] Unknown [id number] Social History Date Type Detail Facility Start: 03-04-2017 Tobacco smoking stat [facility] Unknown if ever smoked [facility] Start: 1995 Sex Assigned At Male [facility] Start: 06-05-2018 Tobacco smoking stat [facility]USTIS Occasional tobacco smoker [facility] Start: 06-05-2018 Tobacco use and exposure Former smokeless tobacco user [facility] Start: 06-05-2018 Alcoholic beverage intake Current non-drinker of alcohol (finding) [facility] Start: 06-05-2018 End: 07-13-2024 History of Social function [facility] Start: 06-05-2018 End: 07-13-2024 Tobacco use panel [facility] National Score (1-100), lower number is lower risk 62 [facility] Start: 1995 Sex assigned at Not on file [facility] Start: 10-24-2024 Tobacco smoking stat [facility] Never smoked tobacco (finding) [facility] Start: 12-07-2024 Sex Male (finding) [facility] Medical Equipment Procedure Code Equipment Code Equipment Origin al Text Equipment Identifier Dates Extra-gynaecolog ical surgical mesh, composite-polymer [id number] FDA Start: 11-03-2024 Goals Date Patient Goal Desired Activity /State Functional Status Date Assessment Result Facility 11-03-2024 Functional status Patient Activi ty Ambulates;Bathroom Privilege [facility] Work Phone: Mental Status Date Assessment Result Facility 11-03-2024 Cognitive function Voice/Name [facility] Work Phone: Radiology Diagnostic study note 11-23-2024 Note Date & Type Note Facility 11-23-2024 Radiology Diagnostic study note [facility] Services [address], [place] [id number] Chest PA and Lateral MR#: [id number] Acct: [id number] Name: MJ TAVERA Rep #: [id number] : 1995 M 29 From: Ismael Martínez DO PCP: Dr. Melly Adams MD Status: REG Millie ROSALES Study:Chest PA and Lateral Date of Exam: 11/23/24 Exam# [id number] Ordering Dr: Melly Adams MD PROCEDURE: PA [...] KAITY CC: Dr. Melly Adams MD ~ Loss Control Representative: Signed [facility] Clinical Note 11-03-2024 Note Date & Type Note Facility 11-03-2024 Note [facility] Medical Records Department [address] [place] [address] History Physical Exam 11/03/24 1109 MR#: [id number] Acct: [id number] Name: MJ TAVERA Rep #: [id number] : 1995 29 From: Filippo Reza MD PCP: Dr. Melly Adams MD Status:[facility] Location: [place] [address] HPI - General General Date of Admission: 11/03/24 Date of Service: 11/03/24 Chief Complaint: ventral hernia HPI Narrative The patient is a 29-year-old male with umbilical/periumbilical hernias. He states he has had this probably 8 or 9 months and this seems to be causing him some increasing discomfort. He had a CT scan performed through the [facility] that showed 2 hernias. The more superior hernia was about 2 cm fascial defect in about a 4 cm hernia sac. He had a smaller umbilical fat-containing hernia with a fascial defect size measuring about 1.2 cm and hernia sac measuring about 1.6 cm. He presents today for robotic hernia repair surgery [facility] Medical History Wears glasses Alcohol use Migraine [...] today Charges/Coding Visit Charges Inpatient E M: 34115 Init Hosp L1 11/03/24 1111 Cosigner Signature (if applicable): CC: Dr. Filippo Reza MD; Dr. Melly Adams MD Signed [facility] Evaluation note 09-05-2024 Note Date & Type Note Facility 09-05-2024 Evaluation note Diagnosis Onset Date Resolution Ventral hernia acute September 052023 2:23pm Ventral hernia acute November 032024 10:00am Ventral hernia acute October 292024 2:38pm [facility] Work Phone: History of Present illness Narrative [...] PATIENT PRESENTS WITH AN IMPLANTABLE OR ATTACHED GEOTHERMAL HVAC TECHNICIAN: No ALLERGIES: Reviewed and unchanged CONTRAST ALLERGY: [...] TIME: 1:48 PM documented in this encounter [facility] Progress note 07-13-2024 Note Date & Type Note Facility 07-13-2024 Note HNO ID: [id number] Author: ELISE SAUER RT(Marli) Service: ? Author Type: Rate Engineer Type: Progress Notes Filed: 07/13/2024 13:48 Note [...] PATIENT PRESENTS WITH AN IMPLANTABLE OR ATTACHED GEOTHERMAL HVAC TECHNICIAN: No ALLERGIES: Reviewed and unchanged CONTRAST ALLERGY: [...] DATE: July 13, 2024 TIME: 1:48 PM [facility] Evaluation note Note Date & Type Note Facility Evaluation note No assessment information availa [facility] Work Phone: Reason for referral (narrative) Note Date & Type Note Facility Reason for referral (narrative) No reason for referral information available [facility] Work Phone: Reason for visit Narrative Diagnostic Procedure Only (Routine) - Closed Note Date & Type Note Facility Reason for visit Narrative Specialty Diagnoses / Procedures Referred By Contac t Referred To Contact Radiology / RADIO CT SCAN [facility] Diagnoses Ventral hernia without obstruction or gangrene ct scan/ orders is scanned in to epic and syngo Procedures CT ABD & PELVIS W/CONTRAST CT ORAL PREP Melly Adams Chi [address] [place] [address] Scan [facility] [address] [place] [address] Referral ID Status Reason Start Date Expiration Date Visits Re quested Visits Authorized [id number] Closed 07/06/2024 01/02/2025 2 2 [facility] Advance Directives No Advanced Directives Records Found Advance Directive Response Recorded Date/ Time Living Will No March 04, 2017 1 0:29pm Power of Processing Supervisor No March 04, 2017 10:29pm Advance Directive Response Recorded Date/ Time Living Will No October 24 2:28pm Power of Processing Supervisor No October 24, 2024 2:28pm Summary Purpose [...] Provi danya, Attending Provider, Referring Provider Active Surface Boss Relationship Specialty Start Date End Date Melly Adams Chi PCP - General Gerontology 06/05/18 Surface Boss Relationship Specialty Start Date End Date Melyl Adams Chi PCP - General Gerontology 06/05/18 [...] or prosecute any alcohol or drug abuse patient.[facility] the event this information is protected by the Federal Confidentiality of Alcohol and Drug Abuse Patient Records regulations: The Federal rules restrict any use of the information to criminally investigate or prosecute any alcohol or drug abuse patient.[facility] Reason for Visit (unrecogniz ed section and content) Reason Comments Radiology CT Specialty Diagnoses / Procedures Referred By Lito t Referred To Contact Radiology / RADIO CT SCAN [facility] Diagnoses Ventral hernia without obstruction or gangrene ct scan/ orders is scanned in to [employer] Procedures CT ABD & PELVIS W/CONTRAST CT ORAL PREP Melly Adams Chi [address] [place] [address] Scan [facility] [address] [place] [address] Referral ID Status Reason Start Date Expiration Date Visits Re quested Visits Authorized [id number] Closed 07/06/2024 01/02/2025 2 2 (unrecognized sect ion and content) No Status Records FoundNo Status Records Found INFORMATION SOURCE (unrecogn ized section and content) DATE CREATED AUTHOR 07/15/2024 [facility] DATE CREATED AUTHOR AUTHOR'S ORGANIZ ATION 04/15/2025 [facility] FOR RECORDS PERTAINING TO PATIENTS WHO [...] BE BASED ON THE PRIMARY CLINICAL RECORDS. [employer] provides no warranty or guarantee of the accuracy or completeness of information in this document.
[2025-07-17 13:58] LABS: AST(SGOT) 20 U/L (<=37); Alanine Aminotransfer ALT/SGPT 23 U/L (<=46); Albumin, Serum 4.4 g/dL (3.5-5.0); Alkaline Phosphatase 62 U/L (40-129); Anion Gap 12 (5-15); BUN 13 mg/dL (4-19); BUN/Creat Ratio 17.5 RATIO (10-20); Calcium,Total 9.4 mg/dL (7.6-11.0); Carbon Dioxide 23.2 mmol/L (21.0-32.0); Chloride 104 mmol/L (98-108); Cholesterol 94 mg/dL (<=200); Globulin 2.5 g/dL (2.2-4.2); Glucose 129 mg/dL (70-99); Low Density Lipoprotein Calc. 36 mg/dL; Potassium 3.8 mmol/L (3.3-5.1); Triglycerides 78 mg/dL; Very Low Density Lipoprotein 16 mg/dL (5-40); cholesterol:hdl ratio screen 2.25
[2025-07-17 21:07] LABS: Xtra Tube Kwok EXTRA TUBE
== END | disposition home or self-care (01) ==
LOC: POLAB3 13:05
PROVIDERS: PCP Family Medicine Geriatric Medicine; Visit Provider Family Medicine Geriatric Medicine
DX: E78.5 Hyperlipidemia, unspecified (principal); R53.83 Other fatigue
CPT/HCPCS: 36415; 80053; 80061; 84443; 85025